=== PATIENT | female | born 1975 | race Hispanic/Latino ===

== ENCOUNTER 2018-03-07 05:18 | Emergency (ER) | payer OTHER ==
[~2018-03-07 05:18] MED LIST: ASPI-1012 PO; HYDR-2132 PO
[2018-03-07] MEDS ORDERED: SODIUM CHLORIDE 0.9% 1000ML 1,000 ML IV ONE (05:48)
[2018-03-07] MEDS ORDERED: ONDANSETRON HCL 4 MG/2 ML VIAL ONE (05:48)
[2018-03-07 05:49] LABS: BASOPHILS % (AUTO) 0.3 % (0.0-5.0); EOSINOPHILS % (AUTO) 0.4 % (0.0-8.0); MEAN CORPUSCULAR HEMOGLOBIN 25.1 pg (27.0-33.0); MEAN CORPUSCULAR HGB CONC 33.7 g/dL (32.0-36.0); MEAN CORPUSCULAR VOLUME 74.5 fL (79-99); MONOCYTES % (AUTO) 4.8 % (3.0-13.0); NEUTROPHILS % (AUTO) 81.5 % (40.0-77.0); PLATELET COUNT (AUTO) 199 K/uL (130-400); RED BLOOD CELL COUNT(AUTO) 5.37 MIL/uL (4.00-5.50); RED CELL DISTRIBUTION WIDTH 15.7 % (11.0-15.5); WHITE BLOOD COUNT (AUTO) 10.5 K/uL (4.8-10.8)
[2018-03-07 05:50] LABS: APPEARANCE,URINE Cloudy (CLEAR); BILIRUBIN,URINE Negative (NEGATIVE); COLOR,URINE Yellow (YELLOW); GLUCOSE, URINE (UA) Negative (NEGATIVE); KETONES,URINE Negative (NEGATIVE); LEUKOCYTE ESTERASE ,URINE Moderate (NEGATIVE); NITRATE,URINE Positive (NEGATIVE); OCCULT BLOOD,URINE Negative (NEGATIVE); PH,URINE 5.5 (5.0-8.0); PROTEIN,URINE Negative (NEGATIVE); UROBILINOGEN,URINE 0.2 mg/dL (0.2-1.0)
[2018-03-07 05:55] LABS: AMORPHOUS SEDIMENT,UR Many /LPF (None Seen); BACTERIA,URINE Few /HPF (None Seen); MUCUS,URINE Few LPF (None Seen); RBC,URINE None Seen /HPF (0-1); SQUAMOUS EPITHELIAL CELL,UR Few /HPF (0-2)
[2018-03-07 06:01] LABS: CREATININE 0.6 mg/dL (0.5-1.5); POTASSIUM 3.8 mmol/L (3.5-5.1)
[2018-03-07 06:02] LABS: AMYLASE 21 U/L (25-115); LIPASE 54 U/L (114-286)
[2018-03-07 06:06] LABS: ALBUMIN 3.4 g/dL (3.5-5.0); BILIRUBIN,TOTAL 0.5 mg/dL (0.2-1.0); TOTAL PROTEIN, SERUM 7.9 g/dL (6.0-8.3)
[2018-03-07] MEDS ORDERED: KETOROLAC TROMETHAMINE 15MG/ML ONE (06:09)
[2018-03-07] MEDS ORDERED: LEVOFLOXACIN 500 MG/D5W 100 ML 100 ML ONE (06:50)
== END 2018-03-07 08:03 | disposition home or self-care (01) ==
LOC: EDH 05:18
DX: N30.00 Acute cystitis without hematuria (principal); R19.7 Diarrhea, unspecified
CPT/HCPCS: 36415; 76770; 80053; 81001; 82150; 83690; 85025; 87088; 87186; 96361; 96365; 96375; 99285; J1885; J1956; J2405; J7030

== ENCOUNTER 2019-03-12 03:55 | Emergency (ER) | payer OTHER ==
[2019-03-12] MEDS ORDERED: TRAMADOL HCL 50 MG TABLET ONE (05:16)
[2019-03-12] MEDS ORDERED: CYCLOBENZAPRINE HCL 10 MG TABLET ONE (05:16)
[2019-03-12 05:17] LABS: EOSINOPHILS % (AUTO) 2.1 % (0.0-8.0); HEMATOCRIT 38.9 % (36-48); LYMPHOCYTES % (AUTO) 20.8 % (21.0-51.0); MEAN CORPUSCULAR HEMOGLOBIN 24.6 pg (27.0-33.0); MEAN CORPUSCULAR HGB CONC 32.5 g/dL (32.0-36.0); MEAN CORPUSCULAR VOLUME 75.8 fL (79-99); MONOCYTES % (AUTO) 6.9 % (3.0-13.0); NEUTROPHILS % (AUTO) 69.2 % (40.0-77.0); PLATELET COUNT (AUTO) 195 K/uL (130-400); RED BLOOD CELL COUNT(AUTO) 5.13 MIL/uL (4.00-5.50); RED CELL DISTRIBUTION WIDTH 16.1 % (11.0-15.5); WHITE BLOOD COUNT (AUTO) 11.5 K/uL (4.8-10.8)
[2019-03-12 05:19] LABS: APPEARANCE,URINE Clear (CLEAR); BILIRUBIN,URINE Negative (NEGATIVE); COLOR,URINE Yellow (YELLOW); GLUCOSE, URINE (UA) Negative (NEGATIVE); KETONES,URINE Negative (NEGATIVE); LEUKOCYTE ESTERASE ,URINE Small (NEGATIVE); NITRATE,URINE Negative (NEGATIVE); OCCULT BLOOD,URINE Negative (NEGATIVE); PROTEIN,URINE Negative (NEGATIVE)
[2019-03-12 05:31] LABS: BACTERIA,URINE Rare /HPF (None Seen); INR 1.01 (0.85-1.15); PARTIAL THROMBOPLASTIN TIME 29.4 SEC (26.3-35.5); PROTHROMBIN TIME 10.6 SEC (9.6-11.6); RBC,URINE None Seen /HPF (0-1); SQUAMOUS EPITHELIAL CELL,UR Few /HPF (0-2); WBC,URINE 0-1 /HPF (0-1)
[2019-03-12] MEDS ORDERED: KETOROLAC TROMETHAMINE 30MG/ML ONE (06:20)
== END 2019-03-12 06:30 | disposition home or self-care (01) ==
LOC: EDH 03:55
DX: M62.838 Other muscle spasm (principal); M54.2 Cervicalgia; R51 Headache; Z90.710 Acquired absence of both cervix and uterus; Z98.890 Other specified postprocedural states
CPT/HCPCS: 36415; 71045; 72040; 81001; 82550; 84484; 85025; 85610; 85730; 93005; 96374; 99285; J1885

== ENCOUNTER 2019-09-05 16:14 | Emergency (ER) | payer OTHER ==
[2019-09-05] MEDS ORDERED: ACETAMINOPHEN EXTRA STRENGTH 500 MG TABLET ONE (17:49)
== END 2019-09-05 18:28 | disposition home or self-care (01) ==
LOC: EDH 16:14
DX: S62.171A Displaced fracture of trapezium [larger multangular], right wrist, initial encounter for closed fracture (principal); R03.0 Elevated blood-pressure reading, without diagnosis of hypertension; Z98.890 Other specified postprocedural states; W18.39XA Other fall on same level, initial encounter; Y93.89 Activity, other specified; Y92.89 Other specified places as the place of occurrence of the external cause; Y99.8 Other external cause status
CPT/HCPCS: 29125; 73110; 73200

== ENCOUNTER 2020-05-11 09:20 | Emergency (ER) | payer OTHER ==
[2020-05-11 10:12] LABS: RAPID GROUP A STREP NEGATIVE (NEGATIVE)
[2020-05-11] MEDS ORDERED: ALBUTEROL INHALER 90MCG/INH IH ONE (10:50)
[2020-05-11] MEDS ORDERED: AZITHROMYCIN 500MG+NS 250ML 250 ML IV ONE (11:13)
[2020-05-11] MEDS ORDERED: CEFTRIAXONE SODIUM 1 GM ONE (11:14)
[2020-05-11] MEDS ORDERED: ACETAMINOPHEN EXTRA STRENGTH 500 MG TABLET ONE (11:14)
[2020-05-11 12:08] LABS: BASOPHILS % (AUTO) 0.2 % (0.0-5.0); EOSINOPHILS % (AUTO) 1.1 % (0.0-8.0); HEMATOCRIT 42.2 % (36-48); LYMPHOCYTES % (AUTO) 23.9 % (21.0-51.0); MEAN CORPUSCULAR HEMOGLOBIN 24.4 pg (27.0-33.0); MEAN CORPUSCULAR HGB CONC 31.5 g/dL (32.0-36.0); MEAN CORPUSCULAR VOLUME 77.3 fL (79-99); MONOCYTES % (AUTO) 7.8 % (3.0-13.0); NEUTROPHILS % (AUTO) 66.7 % (40.0-77.0); PLATELET COUNT (AUTO) 177 K/uL (130-400); RED BLOOD CELL COUNT(AUTO) 5.46 MIL/uL (4.00-5.50); RED CELL DISTRIBUTION WIDTH 15.8 % (11.0-15.5); WHITE BLOOD COUNT (AUTO) 6.2 K/uL (4.8-10.8)
[2020-05-11 12:16] LABS: CREATININE 0.5 mg/dL (0.5-1.5); POTASSIUM 3.8 mmol/L (3.5-5.1)
[2020-05-11 12:21] LABS: ALBUMIN 3.3 g/dL (3.5-5.0); BILIRUBIN,TOTAL 0.2 mg/dL (0.2-1.0); TOTAL PROTEIN, SERUM 7.6 g/dL (6.0-8.3)
[2020-05-11] MEDS ORDERED: DEXAMETHASONE SOD PHOSPHATE 10MG/ML 1ML VIAL ONE (14:27)
== END 2020-05-11 14:38 | disposition home or self-care (01) ==
LOC: EDH 09:20
DX: U07.1 COVID-19 (principal); R50.9 Fever, unspecified; R05 Cough
CPT/HCPCS: 36415; 71045; 80053; 83605; 85025; 87040 ×2; 87804 ×2; 87880; 96365; 99284; 96375; J0456; J0696; J1100; U0003

== ENCOUNTER 2020-05-16 13:31 | Inpatient (IN) | payer OTHER ==
[~2020-05-16] VITALS: Ht 157.5 cm; Wt 139.7 kg
[2020-05-16] MEDS ORDERED: METHYLPREDNISOLONE SOD SUCC 40MG/ML 1ML ONE ×2 (13:51→20:10)
[2020-05-16 14:01] LABS: ABG BASE EXCESS 0.8 mmol/L (-2.0-3.0); ABG HCO3 24.1 mmol/L (21.0-28.0); ABG OXYGEN SATURATION 95.5 % (95.0-99.0); ABG PCO2 35 mmHg (32-45)
[2020-05-16 14:01] LABS: BASOPHILS % (AUTO) 0.1 % (0.0-5.0); HEMATOCRIT 41.6 % (36-48); LYMPHOCYTES % (AUTO) 10.7 % (21.0-51.0); MEAN CORPUSCULAR HEMOGLOBIN 24.3 pg (27.0-33.0); MEAN CORPUSCULAR HGB CONC 32.2 g/dL (32.0-36.0); MEAN CORPUSCULAR VOLUME 75.4 fL (79-99); MONOCYTES % (AUTO) 6.2 % (3.0-13.0); NEUTROPHILS % (AUTO) 81.7 % (40.0-77.0); PLATELET COUNT (AUTO) 176 K/uL (130-400); RED BLOOD CELL COUNT(AUTO) 5.52 MIL/uL (4.00-5.50); RED CELL DISTRIBUTION WIDTH 15.5 % (11.0-15.5); WHITE BLOOD COUNT (AUTO) 12.3 K/uL (4.8-10.8)
[2020-05-16] MEDS ORDERED: CEFTRIAXONE SODIUM 2 GM VIAL ONE (14:05)
[2020-05-16 14:12] LABS: CARBON DIOXIDE 27 mmol/L (21-32); CHLORIDE 98 mmol/L (101-111); CREATININE 0.7 mg/dL (0.5-1.5); GLOMERULAR FILTR. RATE CALC 96 mL/min (>60); GLUCOSE,RANDOM 132 mg/dL (70-105); POTASSIUM 3.2 mmol/L (3.5-5.1); SODIUM SERUM 135 mmol/L (136-145); UREA NITROGEN, BLOOD 12 mg/dL (7-18)
[2020-05-16 14:16] LABS: INR 0.96 (0.85-1.15); PARTIAL THROMBOPLASTIN TIME 27.1 SEC (26.3-35.5); PROTHROMBIN TIME 10.4 SEC (9.6-11.6)
[2020-05-16 14:25] LABS: ALANINE AMINOTRANSFERASE 34 U/L (12-78); ALBUMIN 3.1 g/dL (3.5-5.0); ASPARTATE AMINOTRANSFERASE 22 U/L (10-37); BILIRUBIN,TOTAL 0.3 mg/dL (0.2-1.0); CREATINE KINASE, TOTAL 34 U/L (21-232); MYOGLOBIN 28 ng/mL (10-92); TOTAL PROTEIN, SERUM 7.4 g/dL (6.0-8.3); TROPONIN I < 0.04 ng/mL (0.00-0.06)
[2020-05-16 15:51] LABS: APPEARANCE,URINE Clear (CLEAR); BILIRUBIN,URINE Negative (NEGATIVE); COLOR,URINE Yellow (YELLOW); GLUCOSE, URINE (UA) Negative (NEGATIVE); KETONES,URINE Negative (NEGATIVE); LEUKOCYTE ESTERASE ,URINE Negative (NEGATIVE); NITRATE,URINE Negative (NEGATIVE); OCCULT BLOOD,URINE Negative (NEGATIVE); PROTEIN,URINE Negative (NEGATIVE)
[2020-05-16] MEDS ORDERED: ALBUTEROL INHALER 90MCG/INH IH PRN (19:45)
[2020-05-16] MEDS ORDERED: DIPHENHYDRAMINE HCL 25 MG CAPSULE PO PRN (19:45)
[2020-05-16] MEDS ORDERED: NITROGLYCERIN 0.4 MG SL TAB SL PRN (19:45)
[2020-05-16] MEDS ORDERED: ACETAMINOPHEN 325 MG TAB PO PRN ×2 (19:45)
[2020-05-16] MEDS ORDERED: ONDANSETRON HCL 4 MG/2 ML VIAL IV PRN (19:45)
[2020-05-16] MEDS: AZITHROMYCIN 500MG+NS 250ML 250 ML IV SCH (20:00)
[2020-05-16] MEDS ORDERED: POTASSIUM CHLORIDE 20 MEQ ERTAB PO SCH (20:00)
[2020-05-16] MEDS ORDERED: ERGOCALCIFEROL (VITAMIN D2) 50,000 UNIT CAPSULE PO SCH (20:00)
[2020-05-16] MEDS ORDERED: ERGOCALCIFEROL (VITAMIN D2) 50,000 UNIT CAPSULE ONE (20:11)
[2020-05-16] MEDS ORDERED: POTASSIUM CHLORIDE 20 MEQ ERTAB PO ONE (20:11)
[2020-05-16] MEDS ORDERED: AZITHROMYCIN 500MG+NS 250ML 250 ML IV ONE (20:11)
[2020-05-16 21:49] LABS: CRP QUANTITATIVE 102.3 mg/L (0.00-9.0); MAGNESIUM 1.9 mg/dL (1.80-2.40)
[2020-05-17 06:56] LABS: BASOPHILS % (AUTO) 0.1 % (0.0-5.0); HEMATOCRIT 42.4 % (36-48); LYMPHOCYTES % (AUTO) 8.4 % (21.0-51.0); MEAN CORPUSCULAR HEMOGLOBIN 24.2 pg (27.0-33.0); MEAN CORPUSCULAR HGB CONC 31.8 g/dL (32.0-36.0); MONOCYTES % (AUTO) 5.9 % (3.0-13.0); NEUTROPHILS % (AUTO) 84.5 % (40.0-77.0); PLATELET COUNT (AUTO) 183 K/uL (130-400); RED BLOOD CELL COUNT(AUTO) 5.58 MIL/uL (4.00-5.50); RED CELL DISTRIBUTION WIDTH 15.5 % (11.0-15.5); WHITE BLOOD COUNT (AUTO) 9.5 K/uL (4.8-10.8)
[2020-05-17 07:17] LABS: ALANINE AMINOTRANSFERASE 34 U/L (12-78); ALBUMIN 2.8 g/dL (3.5-5.0); ASPARTATE AMINOTRANSFERASE 23 U/L (10-37); BILIRUBIN,TOTAL 0.3 mg/dL (0.2-1.0); CARBON DIOXIDE 31 mmol/L (21-32); CHLORIDE 100 mmol/L (101-111); CREATININE 0.7 mg/dL (0.5-1.5); GLOMERULAR FILTR. RATE CALC 96 mL/min (>60); GLUCOSE,RANDOM 136 mg/dL (70-105); LACTATE DEHYDROGENASE 364 U/L (81-234); POTASSIUM 4.1 mmol/L (3.5-5.1); SODIUM SERUM 136 mmol/L (136-145); TOTAL PROTEIN, SERUM 7.4 g/dL (6.0-8.3); UREA NITROGEN, BLOOD 9 mg/dL (7-18)
[2020-05-17] MEDS: ALBUTEROL INHALER 90MCG/INH IH SCH ×3 (07:45→15:45)
[2020-05-17 08:00] VITALS: BP 127/53
[2020-05-17] MEDS ORDERED: METHYLPREDNISOLONE SOD SUCC 40MG/ML 1ML ONE ×3 (08:55→20:41)
[2020-05-17] MEDS ORDERED: ALBUTEROL INHALER 90MCG/INH IH ONE (08:55)
[2020-05-17] MEDS ORDERED: ZINC SULFATE 220 CAPSULE ONE (08:55)
[2020-05-17] MEDS ORDERED: ASCORBIC ACID 500 MG TAB ONE (08:55)
[2020-05-17] MEDS ORDERED: CEFTRIAXONE SODIUM 2 GM VIAL ONE (08:56)
[2020-05-17] MEDS ORDERED: ENOXAPARIN SODIUM 40 MG/0.4 ML SYRINGE SQ ONE (08:56)
[2020-05-17] MEDS: ZINC SULFATE 220 CAPSULE PO SCH (09:00)
[2020-05-17] MEDS: ENOXAPARIN SODIUM 40 MG/0.4 ML SYRINGE SQ SCH (09:00)
[2020-05-17] MEDS: METHYLPREDNISOLONE SOD SUCC 40MG/ML 1ML IVP SCH ×3 (09:00→21:39)
[2020-05-17] MEDS: FAMOTIDINE 20MG TAB 20 MG TAB PO SCH ×2 (09:00→21:39)
[2020-05-17] MEDS: CEFTRIAXONE SODIUM 1 GM IVP SCH (09:00)
[2020-05-17] MEDS: ASCORBIC ACID 500 MG TAB PO SCH (09:00)
[2020-05-17 12:00] VITALS: BP 126/40
--- NOTE | 2020-05-17 12:34 | NUR ---
CHART CHECK COMPLETED. Pt IS A 44 Y.O. FEMALE ADMITTED SECONDARY TO CAP,COVID 19. Pt HAS A PAST MEDICAL HISTORY SIGNIFICANT FOR OBSTRUCTIVE SLEEP APNEA, DIVERTICULITIS, MORBID OBESITY, UMBILICAL HERNIA. Pt WITH CURRENT DIET OF REGULAR TEXTURE, THIN LIQUIDS. SKILLED SPEECH THERAPY IS NOT WARRANTED AT THIS TIME. PLEASE REQUEST FORMAL SPEECH/SWALLOW EVALUATION IF Pt PRESENTS WITH +S/S OF ASPIRATION. Addendum: 05/17/20 at 1240 by DOMENIC DIMAS, [facility] Amended: Links added.
--- NOTE | 2020-05-17 15:45 | NUR ---
Consult Spoke to Dr. Santana of [facility] pulmo group. aware of consult.
[2020-05-17 16:00] VITALS: BP 112/47
[2020-05-17] MEDS: AZITHROMYCIN 500MG+NS 250ML 250 ML IV SCH (20:00)
[2020-05-17] MEDS ORDERED: ERGOCALCIFEROL (VITAMIN D2) 50,000 UNIT CAPSULE ONE (20:42)
[2020-05-17] MEDS ORDERED: AZITHROMYCIN 500MG+NS 250ML 250 ML IV ONE (20:42)
[2020-05-17] MEDS ORDERED: POTASSIUM CHLORIDE 20 MEQ ERTAB PO ONE (20:42)
[2020-05-17] MEDS ORDERED: INSULIN HUMULIN R 100 UNIT/ML 3ML ONE (20:46)
[2020-05-17] MEDS ORDERED: FAMOTIDINE 20MG TAB 20 MG TAB ONE (21:12)
[2020-05-18 07:02] LABS: BASOPHILS % (AUTO) 0.1 % (0.0-5.0); LYMPHOCYTES % (AUTO) 7.6 % (21.0-51.0); MEAN CORPUSCULAR HEMOGLOBIN 24.4 pg (27.0-33.0); MEAN CORPUSCULAR HGB CONC 32.3 g/dL (32.0-36.0); MEAN CORPUSCULAR VOLUME 75.7 fL (79-99); NEUTROPHILS % (AUTO) 87.6 % (40.0-77.0); PLATELET COUNT (AUTO) 230 K/uL (130-400); RED BLOOD CELL COUNT(AUTO) 5.81 MIL/uL (4.00-5.50); RED CELL DISTRIBUTION WIDTH 15.5 % (11.0-15.5)
[2020-05-18 07:37] LABS: ALANINE AMINOTRANSFERASE 29 U/L (12-78); ASPARTATE AMINOTRANSFERASE 21 U/L (10-37); BILIRUBIN,TOTAL 0.4 mg/dL (0.2-1.0); CARBON DIOXIDE 27 mmol/L (21-32); CHLORIDE 100 mmol/L (101-111); CREATININE 0.6 mg/dL (0.5-1.5); GLOMERULAR FILTR. RATE CALC 114 mL/min (>60); GLUCOSE,RANDOM 167 mg/dL (70-105); LACTATE DEHYDROGENASE 405 U/L (81-234); POTASSIUM 4.5 mmol/L (3.5-5.1); SODIUM SERUM 134 mmol/L (136-145); TOTAL PROTEIN, SERUM 7.7 g/dL (6.0-8.3); UREA NITROGEN, BLOOD 17 mg/dL (7-18)
[2020-05-18] MEDS ORDERED: ASCORBIC ACID 500 MG TAB ONE (08:37)
[2020-05-18] MEDS ORDERED: METHYLPREDNISOLONE SOD SUCC 40MG/ML 1ML ONE ×3 (08:37→22:27)
[2020-05-18] MEDS ORDERED: ENOXAPARIN SODIUM 40 MG/0.4 ML SYRINGE SQ ONE (08:38)
[2020-05-18] MEDS ORDERED: CEFTRIAXONE SODIUM 2 GM VIAL ONE (08:38)
[2020-05-18] MEDS ORDERED: ZINC SULFATE 220 CAPSULE ONE (08:38)
[2020-05-18] MEDS ORDERED: FAMOTIDINE 20MG TAB 20 MG TAB ONE ×2 (08:38→22:28)
[2020-05-18] MEDS: METHYLPREDNISOLONE SOD SUCC 40MG/ML 1ML IVP SCH ×2 (08:45→14:09)
[2020-05-18] MEDS: CEFTRIAXONE SODIUM 1 GM IVP SCH (08:45)
[2020-05-18] MEDS: FAMOTIDINE 20MG TAB 20 MG TAB PO SCH ×2 (08:45→21:00)
[2020-05-18] MEDS: ZINC SULFATE 220 CAPSULE PO SCH (08:45)
[2020-05-18] MEDS: ASCORBIC ACID 500 MG TAB PO SCH (08:46)
[2020-05-18] MEDS: ENOXAPARIN SODIUM 40 MG/0.4 ML SYRINGE SQ SCH (08:46)
[2020-05-18 11:23] LABS: ABG BASE EXCESS 1.7 mmol/L (-2.0-3.0); ABG HCO3 26.6 mmol/L (21.0-28.0); ABG OXYGEN SATURATION 94.1 % (95.0-99.0); ABG PCO2 43 mmHg (32-45)
--- NOTE | 2020-05-18 17:22 | NUR ---
CALL TO MOM HUMBERTO MICHAEL STATES SHE DOES NOT KNOW HER DAUGHTER PHONE NUMBER, THAT IS WHY ONLY HER NUMBER APPEARS ON THE FACE SHEET. DOES NOT KNOW HER DAUGHTER ADDRESS, THE ADDRESS ON THE FACE SHEET BELONGS TO MOM, STATES PATIENT LIVES ON HER OWN, IS INDEPENDENT , CANNOT VERIFY PCP- STATES WILL PROVIDE TRANSPORT HOME CM TO FOLLOW. PATIENT VERY SICK, PROGNOSIS GUARDED Addendum: 05/18/20 at 1724 by ELICIA SHOEMAKER RN CM Amended: Links added.
[2020-05-18] MEDS: AZITHROMYCIN 500MG+NS 250ML 250 ML IV SCH (20:00)
[2020-05-18] MEDS ORDERED: AZITHROMYCIN 500MG+NS 250ML 250 ML IV ONE (22:28)
[2020-05-19] MEDS ORDERED: ASCORBIC ACID 500 MG TAB ONE (08:17)
[2020-05-19] MEDS ORDERED: ENOXAPARIN SODIUM 60 MG/0.6 ML SQ ONE (08:17)
[2020-05-19] MEDS ORDERED: FAMOTIDINE 20MG TAB 20 MG TAB ONE (08:18)
[2020-05-19] MEDS ORDERED: ZINC SULFATE 220 CAPSULE ONE (08:18)
[2020-05-19] MEDS ORDERED: CEFTRIAXONE SODIUM 1 GM ONE (08:18)
[2020-05-19] MEDS ORDERED: METHYLPREDNISOLONE SOD SUCC 125MG/2ML VIAL ONE (08:18)
[2020-05-19 08:38] LABS: BASOPHILS % (AUTO) 0.2 % (0.0-5.0); LYMPHOCYTES % (AUTO) 15.6 % (21.0-51.0); MEAN CORPUSCULAR HEMOGLOBIN 24.1 pg (27.0-33.0); MEAN CORPUSCULAR HGB CONC 31.7 g/dL (32.0-36.0); MEAN CORPUSCULAR VOLUME 76.1 fL (79-99); MONOCYTES % (AUTO) 6.6 % (3.0-13.0); NEUTROPHILS % (AUTO) 76.4 % (40.0-77.0); PLATELET COUNT (AUTO) 241 K/uL (130-400); RED BLOOD CELL COUNT(AUTO) 5.52 MIL/uL (4.00-5.50); RED CELL DISTRIBUTION WIDTH 15.3 % (11.0-15.5)
[2020-05-19 08:52] LABS: ALANINE AMINOTRANSFERASE 25 U/L (12-78); ALBUMIN 2.7 g/dL (3.5-5.0); ASPARTATE AMINOTRANSFERASE 17 U/L (10-37); BILIRUBIN,TOTAL 0.3 mg/dL (0.2-1.0); CARBON DIOXIDE 31 mmol/L (21-32); CHLORIDE 102 mmol/L (101-111); CREATININE 0.6 mg/dL (0.5-1.5); GLOMERULAR FILTR. RATE CALC 114 mL/min (>60); GLUCOSE,RANDOM 153 mg/dL (70-105); LACTATE DEHYDROGENASE 341 U/L (81-234); POTASSIUM 4.7 mmol/L (3.5-5.1); SODIUM SERUM 138 mmol/L (136-145); UREA NITROGEN, BLOOD 17 mg/dL (7-18)
[2020-05-19] MEDS: ZINC SULFATE 220 CAPSULE PO SCH (09:00)
[2020-05-19] MEDS: CEFTRIAXONE SODIUM 1 GM IVP SCH (09:00)
[2020-05-19] MEDS: ENOXAPARIN SODIUM 40 MG/0.4 ML SYRINGE SQ SCH (09:00)
[2020-05-19] MEDS: FAMOTIDINE 20MG TAB 20 MG TAB PO SCH ×2 (09:00→21:28)
[2020-05-19] MEDS: ASCORBIC ACID 500 MG TAB PO SCH (09:00)
[2020-05-19] MEDS: METHYLPREDNISOLONE SOD SUCC 40MG/ML 1ML IVP SCH ×2 (14:45→21:27)
[2020-05-19] MEDS: ALBUTEROL INHALER 90MCG/INH IH SCH ×4 (15:50→23:45)
[2020-05-19 16:10] VITALS: BP 129/80
[2020-05-19 16:14] VITALS: BP 115/59
[2020-05-19 20:00] VITALS: BP 115/59
[2020-05-19] MEDS: AZITHROMYCIN 500MG+NS 250ML 250 ML IV SCH (21:27)
--- NOTE | 2020-05-19 22:00 | NUR ---
PT STATES CONCERN OVER HER SAFETY DUE TO BEING AROUND COVID PTS. SHE IS COVID POSITIVE AND HAS BEEN EDUCATED ON PT SAFETY DURING THIS TIME. PT SPOKE TO PICKER PACKER. I INFORMED CHARGE NURSE. PT BELIEVES SHE IS AT RISK OF BEING REINFECTED.
[2020-05-20] VITALS: BP 115/51
--- NOTE | 2020-05-20 01:50 | NUR ---
PT WILL BE TRANSFERRING TO [facility].
--- NOTE | 2020-05-20 02:30 | NUR ---
REPORT GIVEN TO BRUNO MCDONALD
--- NOTE | 2020-05-20 02:40 | NUR ---
PT TRANSFERRED TO 224. ON NON REBREATHER 15L 100%. ABLE TO AMBULATE. STATES NO MORE CONCERNS. NOTHING PENDING FOR THE PT.
[2020-05-20 03:46] VITALS: BP 142/76
[2020-05-20] MEDS: ALBUTEROL INHALER 90MCG/INH IH SCH ×5 (04:00→19:46)
[2020-05-20 07:02] LABS: HEMATOCRIT 43.1 % (36-48); MEAN CORPUSCULAR HEMOGLOBIN 24.5 pg (27.0-33.0); MEAN CORPUSCULAR HGB CONC 31.6 g/dL (32.0-36.0); MEAN CORPUSCULAR VOLUME 77.7 fL (79-99); RED BLOOD CELL COUNT(AUTO) 5.55 MIL/uL (4.00-5.50); WHITE BLOOD COUNT (AUTO) 10.5 K/uL (4.8-10.8)
[2020-05-20 07:24] LABS: CREATININE 0.6 mg/dL (0.5-1.5); POTASSIUM 4.3 mmol/L (3.5-5.1)
[2020-05-20 08:00] VITALS: BP 129/65
[2020-05-20] MEDS: ZINC SULFATE 220 CAPSULE PO SCH (08:58)
[2020-05-20] MEDS: METHYLPREDNISOLONE SOD SUCC 40MG/ML 1ML IVP SCH ×3 (08:58→20:47)
[2020-05-20] MEDS: CEFTRIAXONE SODIUM 1 GM IVP SCH (08:58)
[2020-05-20] MEDS: FAMOTIDINE 20MG TAB 20 MG TAB PO SCH ×2 (08:58→20:47)
[2020-05-20] MEDS: ENOXAPARIN SODIUM 40 MG/0.4 ML SYRINGE SQ SCH (08:59)
[2020-05-20] MEDS: ASCORBIC ACID 500 MG TAB PO SCH (09:00)
[2020-05-20 11:00] VITALS: BP 107/61
[2020-05-20 16:00] VITALS: BP 111/65
[2020-05-20 20:46] VITALS: BP 133/64
[2020-05-20] MEDS: AZITHROMYCIN 500MG+NS 250ML 250 ML IV SCH (20:47)
[2020-05-21] MEDS: ALBUTEROL INHALER 90MCG/INH IH SCH ×7 (00:03→23:45)
[2020-05-21 00:38] VITALS: BP 135/65
[2020-05-21 04:24] VITALS: BP 105/74
[2020-05-21 07:03] LABS: BASOPHILS % (AUTO) 0.2 % (0.0-5.0); HEMATOCRIT 43.3 % (36-48); LYMPHOCYTES % (AUTO) 13.4 % (21.0-51.0); MEAN CORPUSCULAR HEMOGLOBIN 24.1 pg (27.0-33.0); MEAN CORPUSCULAR HGB CONC 30.9 g/dL (32.0-36.0); MEAN CORPUSCULAR VOLUME 77.9 fL (79-99); MONOCYTES % (AUTO) 7.9 % (3.0-13.0); NEUTROPHILS % (AUTO) 76.8 % (40.0-77.0); PLATELET COUNT (AUTO) 220 K/uL (130-400); RED BLOOD CELL COUNT(AUTO) 5.56 MIL/uL (4.00-5.50); RED CELL DISTRIBUTION WIDTH 14.9 % (11.0-15.5); WHITE BLOOD COUNT (AUTO) 10.8 K/uL (4.8-10.8)
[2020-05-21 08:00] VITALS: BP 96/48
[2020-05-21] MEDS: CEFTRIAXONE SODIUM 1 GM IVP SCH (09:11)
[2020-05-21] MEDS: METHYLPREDNISOLONE SOD SUCC 40MG/ML 1ML IVP SCH ×3 (09:11→20:40)
[2020-05-21] MEDS: FAMOTIDINE 20MG TAB 20 MG TAB PO SCH ×2 (09:12→20:40)
[2020-05-21] MEDS: ENOXAPARIN SODIUM 40 MG/0.4 ML SYRINGE SQ SCH (09:12)
[2020-05-21] MEDS: ASCORBIC ACID 500 MG TAB PO SCH (09:12)
[2020-05-21] MEDS: ZINC SULFATE 220 CAPSULE PO SCH (09:12)
[2020-05-21 10:29] LABS: CREATININE 0.7 mg/dL (0.5-1.5); CRP QUANTITATIVE 2.8 mg/L (0.00-9.0); POTASSIUM 4.6 mmol/L (3.5-5.1)
[2020-05-21 11:00] VITALS: BP 112/67
[2020-05-21] MEDS ORDERED: PHARMACY COMMUNICATION MISC SCH (12:45)
[2020-05-21] MEDS ORDERED: REMDESIVIR (EUA) 520 100 MG VIAL IV ONE (13:30)
[2020-05-21] MEDS ORDERED: REMDESIVIR (EUA) 520 200 MG in SODIUM CHLORIDE 0.9% 250 ML IV ONE (13:30)
--- NOTE | 2020-05-21 15:25 | NUR ---
Dr. Quevedo gave order for plasma and remdesivir. Remdesivir started today. Type and screen ordered, [facility] form completed and placed in chart. Informed charge nurse Serafin of order.
[2020-05-21 16:00] VITALS: BP 108/62
[2020-05-21] MEDS ORDERED: SODIUM CHLORIDE 0.9% 50 ML IV ONE (18:24)
[2020-05-21 20:12] VITALS: BP 133/57
[2020-05-21] MEDS: AZITHROMYCIN 500MG+NS 250ML 250 ML IV SCH (20:39)
[2020-05-22] VITALS (7 sets, daily range): BP systolic 93–155; BP diastolic 45–78
[2020-05-22] MEDS: ALBUTEROL INHALER 90MCG/INH IH SCH ×3 (04:27→23:28)
[2020-05-22 06:11] LABS: BASOPHILS % (AUTO) 0.2 % (0.0-5.0); HEMATOCRIT 40.5 % (36-48); LYMPHOCYTES % (AUTO) 14.2 % (21.0-51.0); MEAN CORPUSCULAR HEMOGLOBIN 24.4 pg (27.0-33.0); MEAN CORPUSCULAR HGB CONC 31.6 g/dL (32.0-36.0); MEAN CORPUSCULAR VOLUME 77.1 fL (79-99); MONOCYTES % (AUTO) 6.6 % (3.0-13.0); NEUTROPHILS % (AUTO) 77.4 % (40.0-77.0); PLATELET COUNT (AUTO) 230 K/uL (130-400); RED BLOOD CELL COUNT(AUTO) 5.25 MIL/uL (4.00-5.50); RED CELL DISTRIBUTION WIDTH 14.7 % (11.0-15.5); WHITE BLOOD COUNT (AUTO) 10.9 K/uL (4.8-10.8)
[2020-05-22 06:38] LABS: B-TYPE NATRIURETIC PEPTIDE 25 pg/mL (0-100)
[2020-05-22 06:58] LABS: ALBUMIN 2.7 g/dL (3.5-5.0); BILIRUBIN,TOTAL 0.3 mg/dL (0.2-1.0); CREATININE 0.6 mg/dL (0.5-1.5); CRP QUANTITATIVE 4.8 mg/L (0.00-9.0); POTASSIUM 4.3 mmol/L (3.5-5.1); TOTAL PROTEIN, SERUM 6.5 g/dL (6.0-8.3)
[2020-05-22] MEDS: ASCORBIC ACID 500 MG TAB PO SCH (08:47)
[2020-05-22] MEDS: ZINC SULFATE 220 CAPSULE PO SCH (08:47)
[2020-05-22] MEDS: FAMOTIDINE 20MG TAB 20 MG TAB PO SCH ×2 (08:47→20:23)
[2020-05-22] MEDS: CEFTRIAXONE SODIUM 1 GM IVP SCH (08:48)
[2020-05-22] MEDS: METHYLPREDNISOLONE SOD SUCC 40MG/ML 1ML IVP SCH ×3 (08:48→20:22)
[2020-05-22] MEDS: ENOXAPARIN SODIUM 40 MG/0.4 ML SYRINGE SQ SCH (08:48)
[2020-05-22] MEDS ORDERED: REMDESIVIR (EUA) 520 100 MG VIAL IV ONE (13:00)
[2020-05-22] MEDS: REMDESIVIR (EUA) 520 100 MG in SODIUM CHLORIDE 0.9% 250 ML IV SCH (14:21)
[2020-05-22] MEDS: AZITHROMYCIN 500MG+NS 250ML 250 ML IV SCH (20:22)
[2020-05-23] MEDS: ALBUTEROL INHALER 90MCG/INH IH SCH ×6 (02:57→23:30)
[2020-05-23 03:55] VITALS: BP 123/67
[2020-05-23 06:07] LABS: BASOPHILS % (AUTO) 0.2 % (0.0-5.0); HEMATOCRIT 40.5 % (36-48); LYMPHOCYTES % (AUTO) 11.7 % (21.0-51.0); MEAN CORPUSCULAR HEMOGLOBIN 24.4 pg (27.0-33.0); MEAN CORPUSCULAR HGB CONC 31.6 g/dL (32.0-36.0); MEAN CORPUSCULAR VOLUME 77.3 fL (79-99); MONOCYTES % (AUTO) 4.5 % (3.0-13.0); NEUTROPHILS % (AUTO) 82.2 % (40.0-77.0); PLATELET COUNT (AUTO) 229 K/uL (130-400); RED BLOOD CELL COUNT(AUTO) 5.24 MIL/uL (4.00-5.50); RED CELL DISTRIBUTION WIDTH 14.7 % (11.0-15.5); WHITE BLOOD COUNT (AUTO) 13.1 K/uL (4.8-10.8)
[2020-05-23 06:31] LABS: ALBUMIN 2.8 g/dL (3.5-5.0); BILIRUBIN,TOTAL 0.4 mg/dL (0.2-1.0); CREATININE 0.6 mg/dL (0.5-1.5); CRP QUANTITATIVE 4.1 mg/L (0.00-9.0); POTASSIUM 4.8 mmol/L (3.5-5.1); TOTAL PROTEIN, SERUM 6.6 g/dL (6.0-8.3)
[2020-05-23 08:00] VITALS: BP 108/63
[2020-05-23] MEDS: METHYLPREDNISOLONE SOD SUCC 40MG/ML 1ML IVP SCH (08:39)
[2020-05-23] MEDS: CEFTRIAXONE SODIUM 1 GM IVP SCH (08:39)
[2020-05-23] MEDS: ZINC SULFATE 220 CAPSULE PO SCH (08:40)
[2020-05-23] MEDS: FAMOTIDINE 20MG TAB 20 MG TAB PO SCH ×2 (08:40→19:51)
[2020-05-23] MEDS: ASCORBIC ACID 500 MG TAB PO SCH (08:40)
[2020-05-23] MEDS: ENOXAPARIN SODIUM 40 MG/0.4 ML SYRINGE SQ SCH (08:41)
[2020-05-23] MEDS: DEXAMETHASONE 4 MG TAB PO SCH (09:00)
[2020-05-23] MEDS: APIXABAN 2.5 MG TABLET PO SCH ×2 (09:00→19:52)
--- NOTE | 2020-05-23 09:50 | NUR ---
Administered solumedrol this AM prior to change to decadron
--- NOTE | 2020-05-23 09:59 | NUR ---
Administered lovenox this morning prior to change to eliquis.
[2020-05-23 11:00] VITALS: BP 108/49
[2020-05-23] MEDS ORDERED: REMDESIVIR (EUA) 520 100 MG VIAL IV ONE (13:00)
[2020-05-23] MEDS: REMDESIVIR (EUA) 520 100 MG in SODIUM CHLORIDE 0.9% 250 ML IV SCH (13:40)
[2020-05-23 15:00] VITALS: BP 97/50
[2020-05-23] MEDS ORDERED: SODIUM CHLORIDE 0.9% 50 ML IV ONE (16:45)
[2020-05-23 20:38] VITALS: BP 102/53
[2020-05-24] VITALS: BP 112/60
[2020-05-24] MEDS: ALBUTEROL INHALER 90MCG/INH IH SCH ×6 (03:02→23:55)
[2020-05-24 04:05] VITALS: BP 119/51
--- NOTE | 2020-05-24 05:37 | NUR ---
PM SHIFT SUMMARY PT A&0X3 ABLE TO MAKE NEEDS KNOWN, ON NRB @15 L, CONVERTED TO NC 02 SAT 92-94% HOWEVER DROPS TO 80 WITH AMBULATION TO RESTROOM PLACED ON VENTI MASK BY RT 02 SAT 92-94% WITH USE AND DOWN TO 87% WITH AMBULATION TO RESTROOM. PT SLEPT PRONE THROUGHOUT THE NIGHT. NO OTHER CHANGES FROM BASELINE SHIFT ASSESSMENT/ACUTE EVENT OVERNIGHT.
[2020-05-24 08:28] VITALS: BP 128/56
[2020-05-24] MEDS: CEFTRIAXONE SODIUM 1 GM IVP SCH (08:45)
[2020-05-24] MEDS: FAMOTIDINE 20MG TAB 20 MG TAB PO SCH ×2 (08:45→20:42)
[2020-05-24] MEDS: APIXABAN 2.5 MG TABLET PO SCH ×2 (08:45→20:42)
[2020-05-24] MEDS: ZINC SULFATE 220 CAPSULE PO SCH (08:45)
[2020-05-24] MEDS: ASCORBIC ACID 500 MG TAB PO SCH (08:45)
[2020-05-24] MEDS: DEXAMETHASONE 4 MG TAB PO SCH (08:45)
[2020-05-24] MEDS ORDERED: COMPOUND IV REFRIGERATED 1 EACH IVSOLN MISC PRN (12:00)
[2020-05-24 12:30] VITALS: BP 92/46
--- NOTE | 2020-05-24 12:48 | NUR ---
RDSCREEN - LOS X 8 Pt admitted with CAP, positive COVID-19. Pt with Clear Liquid diet order in place, 'may have Chk'n salad' in diet comment. PO intake at 100% (05/22/20). Attempt to call Pt and RN, no answer. No report of GI distress. Zinc, Vitamin C supplementation in place. NRB vs Nasal canula per EMR. Prone positioning. WBC 13.1, Alb 2.8. Recommend Advance diet to Full Liquid as medically feasible Recommend 30mL ProMod QD RD to continue to monitor. Please notify as additional nutrition concerns arise. Thank you.
[2020-05-24] MEDS ORDERED: REMDESIVIR (EUA) 520 100 MG VIAL IV ONE (13:00)
[2020-05-24] MEDS: REMDESIVIR (EUA) 520 100 MG in SODIUM CHLORIDE 0.9% 250 ML IV SCH (13:26)
[2020-05-24 16:34] VITALS: BP 94/55
[2020-05-24] MEDS ORDERED: SODIUM CHLORIDE 0.9% 50 ML IV ONE (16:36)
[2020-05-24 20:27] VITALS: BP 122/75
[2020-05-25] VITALS (7 sets, daily range): BP systolic 99–126; BP diastolic 44–71
[2020-05-25] MEDS: ALBUTEROL INHALER 90MCG/INH IH SCH ×6 (04:23→23:45)
--- NOTE | 2020-05-25 05:42 | NUR ---
PM SHIFT SUMMARY PT A&OX3 ABLE TO MAKE NEEDS KNOWN. ON VENTI MASK 02 SAT 94%, USE CPAP DURING SLEEP. NO CHANGES FROM BASELINE SHIFT ASSESSMENT/ACUTE EVENTS OVERNIGHT.
[2020-05-25] MEDS: ZINC SULFATE 220 CAPSULE PO SCH (09:00)
[2020-05-25] MEDS: APIXABAN 2.5 MG TABLET PO SCH ×2 (09:00→20:33)
[2020-05-25] MEDS: ASCORBIC ACID 500 MG TAB PO SCH (09:00)
[2020-05-25] MEDS: FAMOTIDINE 20MG TAB 20 MG TAB PO SCH ×2 (09:00→20:33)
[2020-05-25] MEDS: DEXAMETHASONE 4 MG TAB PO SCH (09:00)
[2020-05-25] MEDS ORDERED: REMDESIVIR (EUA) 520 100 MG VIAL IV ONE (13:00)
[2020-05-25] MEDS: REMDESIVIR (EUA) 520 100 MG in SODIUM CHLORIDE 0.9% 250 ML IV SCH (13:35)
[2020-05-25] MEDS ORDERED: SODIUM CHLORIDE 0.9% 50 ML IV ONE (15:40)
--- NOTE | 2020-05-25 16:08 | NUR ---
Changed pt from ventimask 30% to NC 6lpm oxygen sat 94% before change to NC. Will continue to monitor.
--- NOTE | 2020-05-25 16:32 | NUR ---
Pt sating 98% on 6lpm NC. Decreased to 5lpm. Will continue to monitor.
--- NOTE | 2020-05-25 17:49 | NUR ---
Reassess oxygen saturation after pt showered. Pt report slight SOB when showering. 95% on 5lpm NC decreased to 4lpm. No s/s of distress noted at this time. Will continue to monitor.
[2020-05-26 03:58] VITALS: BP 111/54
[2020-05-26] MEDS: ALBUTEROL INHALER 90MCG/INH IH SCH ×4 (04:34→19:55)
[2020-05-26 08:17] VITALS: BP 120/68
[2020-05-26] MEDS: ZINC SULFATE 220 CAPSULE PO SCH (09:01)
[2020-05-26] MEDS: FAMOTIDINE 20MG TAB 20 MG TAB PO SCH ×2 (09:01→21:06)
[2020-05-26] MEDS: ASCORBIC ACID 500 MG TAB PO SCH (09:01)
[2020-05-26] MEDS: DEXAMETHASONE 4 MG TAB PO SCH (09:01)
[2020-05-26] MEDS: APIXABAN 2.5 MG TABLET PO SCH ×2 (09:57→21:06)
[2020-05-26 11:53] VITALS: BP 100/67
[2020-05-26 16:34] VITALS: BP 113/74
--- NOTE | 2020-05-26 18:23 | NUR ---
Tubing Nurse approached CM and verbalized patient's concern regarding tubing for CPAP machine and possible need for oxygen. Verified concern with patient. Patient states new tubing won't come in until 05/30. CM approached GM, RT and informed of patient's concern. Per GM, RT should be able to provide needed tubing.
[2020-05-26 19:46] VITALS: BP 98/48
[2020-05-26 23:20] VITALS: BP 114/56
[2020-05-27] MEDS: ALBUTEROL INHALER 90MCG/INH IH SCH ×4 (00:29→11:59)
[2020-05-27 03:55] VITALS: BP 124/62
[2020-05-27 06:46] LABS: BASOPHILS % (AUTO) 0.1 % (0.0-5.0); EOSINOPHILS % (AUTO) 0.2 % (0.0-8.0); HEMATOCRIT 37.4 % (36-48); LYMPHOCYTES % (AUTO) 17.8 % (21.0-51.0); MEAN CORPUSCULAR HEMOGLOBIN 24.4 pg (27.0-33.0); MEAN CORPUSCULAR HGB CONC 31.6 g/dL (32.0-36.0); MEAN CORPUSCULAR VOLUME 77.4 fL (79-99); MONOCYTES % (AUTO) 10.8 % (3.0-13.0); NEUTROPHILS % (AUTO) 69.8 % (40.0-77.0); PLATELET COUNT (AUTO) 206 K/uL (130-400); RED BLOOD CELL COUNT(AUTO) 4.83 MIL/uL (4.00-5.50); RED CELL DISTRIBUTION WIDTH 15.5 % (11.0-15.5); WHITE BLOOD COUNT (AUTO) 15.4 K/uL (4.8-10.8)
[2020-05-27 07:13] LABS: PLATELET MORPHOLOGY LARGE PLTS PRESENT
[2020-05-27 07:14] LABS: ALBUMIN 2.8 g/dL (3.5-5.0); BILIRUBIN,TOTAL 0.3 mg/dL (0.2-1.0); CREATININE 0.6 mg/dL (0.5-1.5); CRP QUANTITATIVE 11.9 mg/L (0.00-9.0); POTASSIUM 4.2 mmol/L (3.5-5.1); TOTAL PROTEIN, SERUM 6.1 g/dL (6.0-8.3)
[2020-05-27 08:00] VITALS: BP 98/45
[2020-05-27] MEDS: ZINC SULFATE 220 CAPSULE PO SCH (08:34)
[2020-05-27] MEDS: FAMOTIDINE 20MG TAB 20 MG TAB PO SCH (08:34)
[2020-05-27] MEDS: ASCORBIC ACID 500 MG TAB PO SCH (08:34)
[2020-05-27] MEDS: APIXABAN 2.5 MG TABLET PO SCH (08:34)
[2020-05-27] MEDS: DEXAMETHASONE 4 MG TAB PO SCH (08:34)
[2020-05-27] MEDS ORDERED: DEXA4 PO (10:09)
[2020-05-27] MEDS ORDERED: APIX2.5T PO (10:09)
--- NOTE | 2020-05-27 10:35 | NUR ---
Pt to be discharged home with oxygen concentrator. Called oncall supportive employment case manager to determine how this is set up for home. Will discharge pt when home oxygen arrangement is done.
[2020-05-27] MEDS ORDERED: NYST5ORA7 PO (10:59)
--- NOTE | 2020-05-27 12:04 | NUR ---
Received a call from case management. Pt to go home with loaned oxygen concentrator. art manager to determine discharge process with concentrator. Will prepare all discharge and send home once oxygen concentrator for home is set up.
[2020-05-27 12:52] VITALS: BP 125/88
--- NOTE | 2020-05-27 13:50 | NUR ---
CM NOTE/HOME O2 CM spoke to ROBERT BROWN regarding oxygen. State pt has been weaned off oxygen and may not need home o2. Received orders for respiratory eval for home oxygen. CM notified RT of pending eval and discharge. CM spoke to pt and explained hopital is lending o2 concentrator and tank for expedited discharge. CM explained emergency plan at home if power outage and aware to call EMS or return to hospital for any respiratory distress symptoms. Pt verbalized understanding is agreed to plan and feel safe to return home. The above plan was also discussed with ROBERT BROWN and agreed. CM updated nursing with above. CM to f/u.
--- NOTE | 2020-05-27 15:31 | NUR ---
Provided discharge instructions on medications and instructed when to start taking medication. Pt verbalized understanding. All prescriptions to be picked up at outside pharmacy. IV and tele removed. Educated pt to continue to socially distant self, good hand hygiene, wear mask when out in public. Continue to quarantine x14 days. Encourage oxygen saturation monitoring at home and pt verbalized understanding. Has pulse oximeter at home. Pt will need to go home with oxygen concentrator. Pt signed paperwork for concentrator loaner from hospital. Respiratory to complete teaching when concentrator arrives to unit. Will discharge pt when teaching completed.
--- NOTE | 2020-05-27 16:02 | NUR ---
Pt transported downstairs via wheelchair. health club manager to meet at ER with concentrator. No s/s of distress noted upon exit from unit.
== END 2020-05-27 16:00 | disposition home or self-care (01) | DRG 177 ==
LOC: EDH 13:31 → EDHIP 19:00 → 2CV 05-19 14:09 → 2DH 05-20 01:45
PROVIDERS: ADMIT Internal Medicine; ATTEND Internal Medicine
PROC: 30233K1 Transfusion of Nonautologous Frozen Plasma into Peripheral Vein, Percutaneous Approach (ICD-10-PCS; principal; 2020-05-16)
PROC: 5A09357 Assistance with Respiratory Ventilation, Less than 24 Consecutive Hours, Continuous Positive Airway Pressure (ICD-10-PCS; 2020-05-17)
PROC: 5A09357 Assistance with Respiratory Ventilation, Less than 24 Consecutive Hours, Continuous Positive Airway Pressure (ICD-10-PCS; 2020-05-23)
PROC: 5A09357 Assistance with Respiratory Ventilation, Less than 24 Consecutive Hours, Continuous Positive Airway Pressure (ICD-10-PCS; 2020-05-24)
PROC: 5A09357 Assistance with Respiratory Ventilation, Less than 24 Consecutive Hours, Continuous Positive Airway Pressure (ICD-10-PCS; 2020-05-25)
PROC: 5A09357 Assistance with Respiratory Ventilation, Less than 24 Consecutive Hours, Continuous Positive Airway Pressure (ICD-10-PCS; 2020-05-26)
PROC: 5A09357 Assistance with Respiratory Ventilation, Less than 24 Consecutive Hours, Continuous Positive Airway Pressure (ICD-10-PCS; 2020-05-27)
DX: U07.1 COVID-19 (principal); J12.89 Other viral pneumonia; J96.01 Acute respiratory failure with hypoxia; Z68.43 Body mass index [BMI] 50.0-59.9, adult; G47.33 Obstructive sleep apnea (adult) (pediatric); E87.6 Hypokalemia; R73.9 Hyperglycemia, unspecified; E66.01 Morbid (severe) obesity due to excess calories; Z91.040 Latex allergy status; Z82.0 Family history of epilepsy and other diseases of the nervous system; Z82.5 Family history of asthma and other chronic lower respiratory diseases; Z83.3 Family history of diabetes mellitus; Z82.3 Family history of stroke; Z80.0 Family history of malignant neoplasm of digestive organs; Z82.49 Family history of ischemic heart disease and other diseases of the circulatory system
CPT/HCPCS: 0099U; 36415; 36600; 71045; 80048; 80053; 81003; 82550; 82728; 82803; 83605; 83615; 83735; 83874; 83880; 84145; 84484; 85025; 85027; 85378; 85610; 85730; 86140; 86850; 86900; 86901; 86927; 87040; 87088; 87449; 93005; 94660; 94760; 99291; G0378; J0456; J0696; J1650; J1815; J2920; J2930; J7050; J8540; U0003

== ENCOUNTER → 2020-06-16 | Outpatient (CLI) | payer OTHER ==
[~2020-06-16] MED LIST changes: +APIX2.5T PO; +DEXA4 PO; +NYST5ORA7 PO
[2020-06-16 09:45] LABS: BASOPHILS % (AUTO) 0.3 % (0.0-5.0); EOSINOPHILS % (AUTO) 1.2 % (0.0-8.0); HEMATOCRIT 38.8 % (36-48); LYMPHOCYTES % (AUTO) 21.6 % (21.0-51.0); MEAN CORPUSCULAR HEMOGLOBIN 24.9 pg (27.0-33.0); MEAN CORPUSCULAR HGB CONC 31.2 g/dL (32.0-36.0); MEAN CORPUSCULAR VOLUME 79.8 fL (79-99); MONOCYTES % (AUTO) 6.7 % (3.0-13.0); NEUTROPHILS % (AUTO) 68.1 % (40.0-77.0); PLATELET COUNT (AUTO) 186 K/uL (130-400); RED BLOOD CELL COUNT(AUTO) 4.86 MIL/uL (4.00-5.50); RED CELL DISTRIBUTION WIDTH 17.2 % (11.0-15.5)
[2020-06-16 09:56] LABS: HEMOGLOBIN A1C 6.9 % (4.0-6.0)
[2020-06-16 10:11] LABS: BILIRUBIN,TOTAL 0.4 mg/dL (0.2-1.0); CREATININE 0.6 mg/dL (0.5-1.5); CRP QUANTITATIVE 21.6 mg/L (0.00-9.0); POTASSIUM 3.9 mmol/L (3.5-5.1); THYROID STIMULATING HORMONE 1.17 uIU/mL (0.36-3.74)
[2020-06-16 10:17] LABS: B-TYPE NATRIURETIC PEPTIDE 5 pg/mL (0-100)
[2020-06-16 10:49] LABS: ERYTHROCYTE SEDIMENTATION RATE 29 MM/HR (0-20)
== END | disposition home or self-care (01) ==
LOC: LAB 09:15
PROVIDERS: ATTEND Internal Medicine
DX: G47.33 Obstructive sleep apnea (adult) (pediatric) (principal); J45.909 Unspecified asthma, uncomplicated; E66.01 Morbid (severe) obesity due to excess calories; I51.7 Cardiomegaly
CPT/HCPCS: 36415; 71046; 80053; 80061; 82306; 83036; 83880; 84443; 84484; 85025; 85651; 86140

== ENCOUNTER → 2020-07-04 | Outpatient (CLI) | payer OTHER ==
[2020-07-04 09:35] LABS: BASOPHILS % (AUTO) 0.5 % (0.0-5.0); EOSINOPHILS % (AUTO) 0.7 % (0.0-8.0); HEMATOCRIT 39.6 % (36-48); MEAN CORPUSCULAR HEMOGLOBIN 25.4 pg (27.0-33.0); MEAN CORPUSCULAR HGB CONC 31.8 g/dL (32.0-36.0); MEAN CORPUSCULAR VOLUME 79.8 fL (79-99); MONOCYTES % (AUTO) 6.7 % (3.0-13.0); NEUTROPHILS % (AUTO) 69.4 % (40.0-77.0); PLATELET COUNT (AUTO) 199 K/uL (130-400); RED BLOOD CELL COUNT(AUTO) 4.96 MIL/uL (4.00-5.50); RED CELL DISTRIBUTION WIDTH 16.5 % (11.0-15.5); WHITE BLOOD COUNT (AUTO) 8.2 K/uL (4.8-10.8)
[2020-07-04 10:00] LABS: B-TYPE NATRIURETIC PEPTIDE < 5 pg/mL (0-100)
[2020-07-04 10:34] LABS: ALBUMIN 3.2 g/dL (3.5-5.0); BILIRUBIN,TOTAL 0.3 mg/dL (0.2-1.0); CREATININE 0.5 mg/dL (0.5-1.5); THYROID STIMULATING HORMONE 1.65 uIU/mL (0.36-3.74); TOTAL PROTEIN, SERUM 7.1 g/dL (6.0-8.3)
[2020-07-04 10:48] LABS: ERYTHROCYTE SEDIMENTATION RATE 26 MM/HR (0-20)
== END | disposition home or self-care (01) ==
LOC: LAB 07:53
PROVIDERS: ATTEND Internal Medicine
DX: R06.02 Shortness of breath (principal); R06.00 Dyspnea, unspecified; R09.02 Hypoxemia; R63.5 Abnormal weight gain
CPT/HCPCS: 36415; 71046; 80053; 80061; 82607; 83615; 83880; 84443; 85025; 85378; 85651

== ENCOUNTER → 2020-07-24 | Outpatient (CLI) | payer OTHER ==
[2020-07-24 12:27] LABS: BASOPHILS % (AUTO) 0.3 % (0.0-5.0); EOSINOPHILS % (AUTO) 1.4 % (0.0-8.0); LYMPHOCYTES % (AUTO) 19.6 % (21.0-51.0); MEAN CORPUSCULAR HEMOGLOBIN 25.3 pg (27.0-33.0); MEAN CORPUSCULAR HGB CONC 31.5 g/dL (32.0-36.0); MEAN CORPUSCULAR VOLUME 80.3 fL (79-99); MONOCYTES % (AUTO) 5.6 % (3.0-13.0); NEUTROPHILS % (AUTO) 72.6 % (40.0-77.0); PLATELET COUNT (AUTO) 222 K/uL (130-400); RED BLOOD CELL COUNT(AUTO) 4.98 MIL/uL (4.00-5.50); RED CELL DISTRIBUTION WIDTH 15.5 % (11.0-15.5)
[2020-07-24 12:49] LABS: ALBUMIN 3.4 g/dL (3.5-5.0); BILIRUBIN,TOTAL 0.3 mg/dL (0.2-1.0); CREATININE 0.6 mg/dL (0.5-1.5); CRP QUANTITATIVE 19.7 mg/L (0.00-9.0); POTASSIUM 3.9 mmol/L (3.5-5.1); THYROID STIMULATING HORMONE 1.42 uIU/mL (0.36-3.74); TOTAL PROTEIN, SERUM 7.4 g/dL (6.0-8.3)
[2020-07-24 13:52] LABS: ERYTHROCYTE SEDIMENTATION RATE 35 MM/HR (0-20)
[2020-07-24 14:17] LABS: B-TYPE NATRIURETIC PEPTIDE 6 pg/mL (0-100)
== END | disposition home or self-care (01) ==
LOC: RAH 10:46
PROVIDERS: ATTEND Internal Medicine
DX: J44.9 Chronic obstructive pulmonary disease, unspecified (principal); J84.10 Pulmonary fibrosis, unspecified; R06.02 Shortness of breath; R63.5 Abnormal weight gain; M47.814 Spondylosis without myelopathy or radiculopathy, thoracic region; I51.7 Cardiomegaly
CPT/HCPCS: 36415; 71046; 80053; 83880; 84443; 85025; 85378; 85651; 86038; 86140; 86215; 86235

== ENCOUNTER → 2020-08-04 | Outpatient (CLI) | payer OTHER | END | disposition home or self-care (01) | LOC: LAB 08:28 | PROVIDERS: ATTEND Internal Medicine Critical Care Medicine | DX: U07.1 COVID-19 (principal) | CPT/HCPCS: 36415; 82728; 85378; 85651; 86140 ==

== ENCOUNTER → 2020-08-25 | Outpatient (CLI) | payer OTHER | END | disposition home or self-care (01) | LOC: RAH 09:25 | PROVIDERS: ATTEND Internal Medicine Critical Care Medicine | DX: R06.00 Dyspnea, unspecified (principal); E66.9 Obesity, unspecified | CPT/HCPCS: 93306; 93356 ==

== ENCOUNTER → 2020-09-05 | Outpatient (CLI) | payer OTHER ==
[2020-09-05 10:26] LABS: BASOPHILS % (AUTO) 0.4 % (0.0-5.0); HEMATOCRIT 38.9 % (36-48); LYMPHOCYTES % (AUTO) 20.1 % (21.0-51.0); MEAN CORPUSCULAR HEMOGLOBIN 25.2 pg (27.0-33.0); MEAN CORPUSCULAR HGB CONC 31.4 g/dL (32.0-36.0); MEAN CORPUSCULAR VOLUME 80.2 fL (79-99); NEUTROPHILS % (AUTO) 72.7 % (40.0-77.0); PLATELET COUNT (AUTO) 192 K/uL (130-400); RED BLOOD CELL COUNT(AUTO) 4.85 MIL/uL (4.00-5.50); RED CELL DISTRIBUTION WIDTH 14.4 % (11.0-15.5); WHITE BLOOD COUNT (AUTO) 11.9 K/uL (4.8-10.8)
[2020-09-05 10:45] LABS: ALBUMIN 3.3 g/dL (3.5-5.0); BILIRUBIN,TOTAL 0.3 mg/dL (0.2-1.0); CREATININE 0.6 mg/dL (0.5-1.5); CRP QUANTITATIVE 26.7 mg/L (0.00-9.0); POTASSIUM 4.3 mmol/L (3.5-5.1); THYROID STIMULATING HORMONE 1.58 uIU/mL (0.36-3.74); TOTAL PROTEIN, SERUM 7.3 g/dL (6.0-8.3)
[2020-09-05 11:09] LABS: B-TYPE NATRIURETIC PEPTIDE 8 pg/mL (0-100)
[2020-09-05 11:47] LABS: ERYTHROCYTE SEDIMENTATION RATE 25 MM/HR (0-20)
== END | disposition home or self-care (01) ==
LOC: LAB 09:23
PROVIDERS: ATTEND Internal Medicine
DX: J84.10 Pulmonary fibrosis, unspecified (principal); R06.02 Shortness of breath; U07.1 COVID-19
CPT/HCPCS: 36415; 80053; 82728; 83615; 83880; 84443; 85025; 85378; 85651; 86140

== ENCOUNTER → 2020-09-19 | Outpatient (CLI) | payer OTHER | END | disposition home or self-care (01) | LOC: RAH 11:09 | PROVIDERS: ATTEND Internal Medicine | DX: M17.12 Unilateral primary osteoarthritis, left knee (principal) | CPT/HCPCS: 73560 ==

== ENCOUNTER → 2020-09-27 | Outpatient (CLI) | payer OTHER | END | disposition home or self-care (01) | LOC: RAH 13:22 | PROVIDERS: ATTEND Internal Medicine | DX: R91.8 Other nonspecific abnormal finding of lung field (principal); I51.7 Cardiomegaly; Z86.19 Personal history of other infectious and parasitic diseases | CPT/HCPCS: 71046 ==

== ENCOUNTER → 2020-10-11 | Outpatient (CLI) | payer OTHER ==
[2020-10-11 13:58] LABS: BASOPHILS % (AUTO) 0.3 % (0.0-5.0); EOSINOPHILS % (AUTO) 0.5 % (0.0-8.0); HEMATOCRIT 39.2 % (36-48); LYMPHOCYTES % (AUTO) 31.7 % (21.0-51.0); MEAN CORPUSCULAR HEMOGLOBIN 24.7 pg (27.0-33.0); MEAN CORPUSCULAR HGB CONC 31.4 g/dL (32.0-36.0); MEAN CORPUSCULAR VOLUME 78.9 fL (79-99); NEUTROPHILS % (AUTO) 61.8 % (40.0-77.0); PLATELET COUNT (AUTO) 164 K/uL (130-400); RED BLOOD CELL COUNT(AUTO) 4.97 MIL/uL (4.00-5.50); RED CELL DISTRIBUTION WIDTH 14.9 % (11.0-15.5); WHITE BLOOD COUNT (AUTO) 11.6 K/uL (4.8-10.8)
[2020-10-11 14:14] LABS: ALBUMIN 3.1 g/dL (3.5-5.0); BILIRUBIN,TOTAL 0.3 mg/dL (0.2-1.0); CREATININE 0.6 mg/dL (0.5-1.5); CRP QUANTITATIVE 13.9 mg/L (0.00-9.0); POTASSIUM 3.7 mmol/L (3.5-5.1); TOTAL PROTEIN, SERUM 6.8 g/dL (6.0-8.3)
[2020-10-11 15:01] LABS: ERYTHROCYTE SEDIMENTATION RATE 24 MM/HR (0-20)
== END | disposition home or self-care (01) ==
LOC: RESP 12:37
PROVIDERS: ATTEND Internal Medicine
DX: R06.02 Shortness of breath (principal); U07.1 COVID-19; J12.89 Other viral pneumonia; N39.3 Stress incontinence (female) (male); M23.90 Unspecified internal derangement of unspecified knee
CPT/HCPCS: 36415; 80053; 85025; 85651; 86038; 86140; 86215; 86235; 86431; 94060; 94727; 94729

== ENCOUNTER → 2020-11-14 | Outpatient (CLI) | payer OTHER | END | disposition home or self-care (01) | LOC: RAH 15:49 | PROVIDERS: ATTEND Internal Medicine | DX: R91.8 Other nonspecific abnormal finding of lung field (principal); M47.815 Spondylosis without myelopathy or radiculopathy, thoracolumbar region | CPT/HCPCS: 71046 ==

== ENCOUNTER → 2020-12-20 | Outpatient (CLI) | payer OTHER ==
[2020-12-20 11:40] LABS: BASOPHILS % (AUTO) 0.4 % (0.0-5.0); EOSINOPHILS % (AUTO) 1.2 % (0.0-8.0); HEMATOCRIT 39.7 % (36-48); LYMPHOCYTES % (AUTO) 14.4 % (21.0-51.0); MEAN CORPUSCULAR HEMOGLOBIN 24.8 pg (27.0-33.0); MEAN CORPUSCULAR HGB CONC 31.2 g/dL (32.0-36.0); MEAN CORPUSCULAR VOLUME 79.4 fL (79-99); MONOCYTES % (AUTO) 6.4 % (3.0-13.0); PLATELET COUNT (AUTO) 162 K/uL (130-400); RED CELL DISTRIBUTION WIDTH 15.4 % (11.0-15.5); WHITE BLOOD COUNT (AUTO) 11.7 K/uL (4.8-10.8)
[2020-12-20 12:00] LABS: APPEARANCE,URINE Clear (CLEAR); BILIRUBIN,URINE Negative (NEGATIVE); COLOR,URINE Yellow (YELLOW); GLUCOSE, URINE (UA) Negative (NEGATIVE); KETONES,URINE Negative (NEGATIVE); LEUKOCYTE ESTERASE ,URINE Moderate (NEGATIVE); NITRATE,URINE Negative (NEGATIVE); OCCULT BLOOD,URINE Negative (NEGATIVE); PH,URINE 5.5 (5.0-8.0); PROTEIN,URINE Negative (NEGATIVE); UROBILINOGEN,URINE 0.2 mg/dL (0.2-1.0)
[2020-12-20 12:06] LABS: B-TYPE NATRIURETIC PEPTIDE < 5 pg/mL (0-100)
[2020-12-20 12:10] LABS: ALBUMIN 3.2 g/dL (3.5-5.0); BILIRUBIN,DIRECT 0.1 mg/dL (0.0-0.3); BILIRUBIN,TOTAL 0.4 mg/dL (0.2-1.0); CREATININE 0.5 mg/dL (0.5-1.5); POTASSIUM 3.7 mmol/L (3.5-5.1); THYROID STIMULATING HORMONE 0.95 uIU/mL (0.36-3.74); TOTAL PROTEIN, SERUM 7.5 g/dL (6.0-8.3)
[2020-12-20 12:19] LABS: BACTERIA,URINE Few /HPF (None Seen); RBC,URINE 0-1 /HPF (0-1); WBC,URINE 0-1 /HPF (0-1)
== END | disposition home or self-care (01) ==
LOC: LAB 10:03
PROVIDERS: ATTEND Internal Medicine
DX: J44.9 Chronic obstructive pulmonary disease, unspecified (principal); J96.10 Chronic respiratory failure, unspecified whether with hypoxia or hypercapnia; M23.90 Unspecified internal derangement of unspecified knee
CPT/HCPCS: 36415; 80053; 80061; 80076; 81001; 82043; 83880; 84443; 85025; 87088

== ENCOUNTER 2020-12-31 03:03 | Observation (INO) | payer OTHER ==
[~2020-12-31] VITALS: Ht 157.5 cm; Wt 155.9 kg
[2020-12-31] MEDS ORDERED: NITROGLYCERIN 1GM/1 INCH PACKET TD ONE (03:19)
[2020-12-31] MEDS ORDERED: ASPIRIN 325 MG TABLET ONE (03:19)
[2020-12-31 03:29] LABS: BASOPHILS % (AUTO) 0.5 % (0.0-5.0); EOSINOPHILS % (AUTO) 2.1 % (0.0-8.0); HEMATOCRIT 39.6 % (36-48); LYMPHOCYTES % (AUTO) 20.5 % (21.0-51.0); MEAN CORPUSCULAR HEMOGLOBIN 24.8 pg (27.0-33.0); MEAN CORPUSCULAR HGB CONC 31.3 g/dL (32.0-36.0); MEAN CORPUSCULAR VOLUME 79.2 fL (79-99); MONOCYTES % (AUTO) 6.3 % (3.0-13.0); PLATELET COUNT (AUTO) 233 K/uL (130-400); RED CELL DISTRIBUTION WIDTH 14.9 % (11.0-15.5); WHITE BLOOD COUNT (AUTO) 12.6 K/uL (4.8-10.8)
[2020-12-31 03:40] LABS: CREATININE 0.8 mg/dL (0.5-1.5); POTASSIUM 4.1 mmol/L (3.5-5.1)
[2020-12-31 03:44] LABS: ALBUMIN 3.3 g/dL (3.5-5.0); BILIRUBIN,TOTAL 0.3 mg/dL (0.2-1.0); CRP QUANTITATIVE 27.8 mg/L (0.00-9.0); TOTAL PROTEIN, SERUM 7.5 g/dL (6.0-8.3)
[2020-12-31 03:52] LABS: B-TYPE NATRIURETIC PEPTIDE 12 pg/mL (0-100)
[2020-12-31] MEDS ORDERED: CEFTRIAXONE SODIUM 1 GM ONE (04:25)
[2020-12-31] MEDS ORDERED: DOXYCYCLINE 100MG+NS 250ML 250 ML IV ONE ×2 (04:25→20:09)
[2020-12-31] MEDS ORDERED: SODIUM CHLORIDE 0.9% 100 ML IV ONE (04:26)
[2020-12-31] MEDS ORDERED: KETOROLAC TROMETHAMINE 30MG/ML ONE (04:26)
[2020-12-31] MEDS ORDERED: IOHEXOL 350 MG/ML 100ML INFUS..BTL IV ONE (04:56)
[2020-12-31 04:59] LABS: PROTHROMBIN TIME 10.9 SEC (9.6-11.6)
[2020-12-31 05:01] LABS: PARTIAL THROMBOPLASTIN TIME 25.3 SEC (26.3-35.5)
[2020-12-31 05:51] LABS: APPEARANCE,URINE Clear (CLEAR); BILIRUBIN,URINE Negative (NEGATIVE); COLOR,URINE Yellow (YELLOW); GLUCOSE, URINE (UA) Negative (NEGATIVE); KETONES,URINE Negative (NEGATIVE); LEUKOCYTE ESTERASE ,URINE Trace (NEGATIVE); NITRATE,URINE Negative (NEGATIVE); OCCULT BLOOD,URINE Negative (NEGATIVE); PROTEIN,URINE Negative (NEGATIVE); UROBILINOGEN,URINE 0.2 mg/dL (0.2-1.0)
[2020-12-31 06:04] LABS: BACTERIA,URINE None Seen /HPF (None Seen); RBC,URINE None Seen /HPF (0-1); SQUAMOUS EPITHELIAL CELL,UR Few /HPF (0-2); WBC,URINE None Seen /HPF (0-1)
[2020-12-31] MEDS: METHYLPREDNISOLONE SOD SUCC 40MG/ML 1ML IVP SCH ×2 (07:14→19:21)
[2020-12-31] MEDS ORDERED: SODIUM CHLORIDE 0.9% 10 ML VIAL IVP PRN (07:15)
[2020-12-31] MEDS ORDERED: IPRATROPIUM/ALBUTEROL SULFATE 3 ML SOLUTION IH PRN (07:15)
[2020-12-31] MEDS ORDERED: ENOXAPARIN SODIUM 40 MG/0.4 ML SYRINGE SQ ONE (07:49)
[2020-12-31] MEDS ORDERED: METHYLPREDNISOLONE SOD SUCC 40MG/ML 1ML ONE (07:49)
[2020-12-31] MEDS ORDERED: ENOXAPARIN SODIUM 40 MG/0.4 ML SYRINGE SQ SCH (09:00)
[2020-12-31] MEDS: IPRATROPIUM/ALBUTEROL SULFATE 3 ML SOLUTION IH SCH ×3 (10:00→18:00)
[2020-12-31] MEDS ORDERED: IPRATROPIUM/ALBUTEROL SULFATE 3 ML SOLUTION IH ONE (13:23)
[2020-12-31 16:10] VITALS: BP 165/102
[2020-12-31] MEDS ORDERED: AMOX1TAB15 PO (18:28)
[2020-12-31] MEDS ORDERED: CHOL100046 PO (18:28)
[2020-12-31] MEDS ORDERED: BUDE1AMP2 IH (18:28)
[2020-12-31] MEDS ORDERED: FOLI-103 PO (18:28)
[2020-12-31] MEDS ORDERED: TRAM50TA4 PO (18:28)
[2020-12-31] MEDS ORDERED: ASCO100031 PO (18:28)
[2020-12-31] MEDS ORDERED: ALBU2.5V2 IH (18:28)
[2020-12-31] MEDS ORDERED: ZINC30TA2 PO (18:28)
[2020-12-31] MEDS ORDERED: TRAMADOL HCL 50 MG TABLET PO PRN (18:30)
[2020-12-31 19:40] VITALS: BP 144/49
[2020-12-31] MEDS ORDERED: ASPIRIN 325 MG TABLET PO SCH (21:00)
[2020-12-31] MEDS ORDERED: DOXYCYCLINE 100MG+NS 250ML 250 ML IV SCH (21:00)
[2020-12-31] MEDS ORDERED: BUDESONIDE 0.5 MG/2 ML INH IH SCH (21:00)
[2020-12-31] MEDS ORDERED: CALCITRIOL 0.25 MCG CAPSULE PO SCH (21:00)
[2020-12-31] MEDS ORDERED: ASCORBIC ACID 500 MG TAB PO SCH (21:00)
[2020-12-31 23:18] VITALS: BP 142/75
[2020-12-31] MEDS: ALBUTEROL INHALER 90MCG/INH IH SCH (23:30)
[2021-01-01] MEDS ORDERED: ALBUTEROL SULFATE 0.083% 2.5 MG/3 ML INH IH SCH
[2021-01-01 03:40] VITALS: BP 152/81
[2021-01-01 05:53] LABS: MEAN CORPUSCULAR HEMOGLOBIN 24.7 pg (27.0-33.0); MEAN CORPUSCULAR HGB CONC 31.3 g/dL (32.0-36.0); MEAN CORPUSCULAR VOLUME 78.8 fL (79-99); PLATELET COUNT (AUTO) 245 K/uL (130-400); RED BLOOD CELL COUNT(AUTO) 4.82 MIL/uL (4.00-5.50); RED CELL DISTRIBUTION WIDTH 14.7 % (11.0-15.5); WHITE BLOOD COUNT (AUTO) 15.6 K/uL (4.8-10.8)
[2021-01-01] MEDS: IPRATROPIUM/ALBUTEROL SULFATE 3 ML SOLUTION IH SCH (06:00)
[2021-01-01 06:01] LABS: BASOPHILS % (AUTO) 0.3 % (0.0-5.0); EOSINOPHILS % (AUTO) 0.1 % (0.0-8.0); LYMPHOCYTES % (AUTO) 8.8 % (21.0-51.0); MONOCYTES % (AUTO) 2.1 % (3.0-13.0); NEUTROPHILS % (AUTO) 87.3 % (40.0-77.0)
[2021-01-01 06:05] LABS: BILIRUBIN,TOTAL 0.3 mg/dL (0.2-1.0); CREATININE 0.6 mg/dL (0.5-1.5); POTASSIUM 4.4 mmol/L (3.5-5.1); TOTAL PROTEIN, SERUM 7.3 g/dL (6.0-8.3)
[2021-01-01] MEDS: METHYLPREDNISOLONE SOD SUCC 40MG/ML 1ML IVP SCH (06:19)
[2021-01-01] MEDS: ALBUTEROL INHALER 90MCG/INH IH SCH (06:20)
[2021-01-01] MEDS ORDERED: CEFD300C3 PO (06:36)
[2021-01-01 07:57] VITALS: BP 132/59
[2021-01-01] MEDS ORDERED: CEFTRIAXONE SODIUM 1 GM IVP SCH (08:00)
[2021-01-01] MEDS ORDERED: MULTIVITAMIN WITH MINERALS TABLET PO SCH (09:00)
[2021-01-01] MEDS ORDERED: CALCITRIOL 0.25 MCG CAPSULE PO SCH (09:00)
== END 2021-01-01 10:20 | disposition home or self-care (01) ==
LOC: EDH 03:03 → EDHIP 06:47 → 3CH 15:05
PROVIDERS: ADMIT Internal Medicine; ATTEND Internal Medicine
DX: J18.9 Pneumonia, unspecified organism (principal); Z20.822 Contact with and (suspected) exposure to COVID-19; J84.10 Pulmonary fibrosis, unspecified; G47.30 Sleep apnea, unspecified; I10 Essential (primary) hypertension; E66.01 Morbid (severe) obesity due to excess calories; F41.9 Anxiety disorder, unspecified; Z86.16 Personal history of COVID-19; Z95.1 Presence of aortocoronary bypass graft; Z90.710 Acquired absence of both cervix and uterus; Z96.653 Presence of artificial knee joint, bilateral; Z79.899 Other long term (current) drug therapy; Z68.44 Body mass index [BMI] 60.0-69.9, adult
CPT/HCPCS: 36415 ×2; 71045; 71275; 76705; 80053 ×2; 81001; 82550; 82728; 83605; 83880; 84145; 84484; 85025 ×2; 85378; 85610; 85730; 86140; 87040; 87426; 93005; 94640 ×2; 96365; 96366; 96375; 96376; 99291; G0378 ×26; J0696; J1650; J1885; J2920 ×3; J3490 ×3; Q9967; U0003

== ENCOUNTER → 2021-03-07 | Outpatient (CLI) | payer OTHER ==
[~2021-03-07] MED LIST changes: +ALBU2.5V2 IH; +ALBUTEROL SULFATE 0.083% 2.5 MG/3 ML INH IH ONE; +AMOX1TAB15 PO; -APIX2.5T PO; +ASCO100031 PO; +BUDE1AMP2 IH; +CHOL100046 PO; -DEXA4 PO; +FOLI-103 PO; -HYDR-2132 PO; -NYST5ORA7 PO; +TRAM50TA4 PO; +ZINC30TA2 PO
== END | disposition home or self-care (01) ==
LOC: RESP 10:29
PROVIDERS: ATTEND Internal Medicine
DX: R06.02 Shortness of breath (principal); Z86.16 Personal history of COVID-19
CPT/HCPCS: 94060; 94727; 94729

== ENCOUNTER → 2021-03-16 | Outpatient (CLI) | payer OTHER ==
[~2021-03-16] MED LIST changes: -ALBUTEROL SULFATE 0.083% 2.5 MG/3 ML INH IH ONE
[2021-03-16 16:29] LABS: APPEARANCE,URINE Clear (CLEAR); BILIRUBIN,URINE Negative (NEGATIVE); COLOR,URINE Dark Yellow (YELLOW); GLUCOSE, URINE (UA) Negative (NEGATIVE); KETONES,URINE Negative (NEGATIVE); LEUKOCYTE ESTERASE ,URINE Moderate (NEGATIVE); NITRATE,URINE Positive (NEGATIVE); OCCULT BLOOD,URINE Negative (NEGATIVE); PH,URINE 6.5 (5.0-8.0); PROTEIN,URINE Negative (NEGATIVE)
[2021-03-16 16:39] LABS: RBC,URINE 0-1 /HPF (0-1)
[2021-03-16 16:40] LABS: BACTERIA,URINE Few /HPF (None Seen); MUCUS,URINE Rare LPF (None Seen); SQUAMOUS EPITHELIAL CELL,UR Moderate /HPF (0-2)
== END | disposition home or self-care (01) ==
LOC: LAB 15:20
PROVIDERS: ATTEND Internal Medicine
DX: H65.90 Unspecified nonsuppurative otitis media, unspecified ear (principal); K08.89 Other specified disorders of teeth and supporting structures; N39.0 Urinary tract infection, site not specified
CPT/HCPCS: 81001; 87088

== ENCOUNTER → 2021-05-02 | Outpatient (CLI) | payer OTHER | END | disposition home or self-care (01) | LOC: RAH 14:45 | PROVIDERS: ATTEND Internal Medicine | DX: M79.89 Other specified soft tissue disorders (principal); M79.604 Pain in right leg; R60.0 Localized edema; N64.9 Disorder of breast, unspecified | CPT/HCPCS: 93971 ==

== ENCOUNTER → 2021-05-09 | Outpatient (CLI) | payer OTHER ==
[2021-05-09 08:25] LABS: BASOPHILS % (AUTO) 0.3 % (0.0-5.0); EOSINOPHILS % (AUTO) 1.2 % (0.0-8.0); HEMATOCRIT 39.8 % (36-48); LYMPHOCYTES % (AUTO) 21.4 % (21.0-51.0); MEAN CORPUSCULAR HEMOGLOBIN 25.1 pg (27.0-33.0); MEAN CORPUSCULAR HGB CONC 31.2 g/dL (32.0-36.0); MEAN CORPUSCULAR VOLUME 80.6 fL (79-99); MONOCYTES % (AUTO) 5.8 % (3.0-13.0); NEUTROPHILS % (AUTO) 69.9 % (40.0-77.0); PLATELET COUNT (AUTO) 187 K/uL (130-400); RED BLOOD CELL COUNT(AUTO) 4.94 MIL/uL (4.00-5.50); RED CELL DISTRIBUTION WIDTH 15.1 % (11.0-15.5); WHITE BLOOD COUNT (AUTO) 12.5 K/uL (4.8-10.8)
[2021-05-09 08:49] LABS: B-TYPE NATRIURETIC PEPTIDE 6 pg/mL (0-100)
== END | disposition home or self-care (01) ==
LOC: LAB 08:01
PROVIDERS: ATTEND Internal Medicine
DX: R63.5 Abnormal weight gain (principal); N64.9 Disorder of breast, unspecified; Z99.81 Dependence on supplemental oxygen
CPT/HCPCS: 36415; 83880; 84146; 84443; 85025

== ENCOUNTER → 2021-05-24 | Outpatient (CLI) | payer OTHER ==
[2021-05-24 09:26] LABS: BASOPHILS % (AUTO) 0.4 % (0.0-5.0); EOSINOPHILS % (AUTO) 1.7 % (0.0-8.0); HEMATOCRIT 39.5 % (36-48); MEAN CORPUSCULAR HGB CONC 31.1 g/dL (32.0-36.0); MEAN CORPUSCULAR VOLUME 80.3 fL (79-99); MONOCYTES % (AUTO) 6.4 % (3.0-13.0); NEUTROPHILS % (AUTO) 72.2 % (40.0-77.0); PLATELET COUNT (AUTO) 193 K/uL (130-400); RED BLOOD CELL COUNT(AUTO) 4.92 MIL/uL (4.00-5.50); RED CELL DISTRIBUTION WIDTH 15.5 % (11.0-15.5); WHITE BLOOD COUNT (AUTO) 10.5 K/uL (4.8-10.8)
[2021-05-24 09:51] LABS: ALBUMIN 3.2 g/dL (3.5-5.0); BILIRUBIN,DIRECT 0.1 mg/dL (0.0-0.3); BILIRUBIN,TOTAL 0.3 mg/dL (0.2-1.0); CREATININE 0.6 mg/dL (0.5-1.5); POTASSIUM 3.7 mmol/L (3.5-5.1); THYROID STIMULATING HORMONE 1.56 uIU/mL (0.36-3.74); TOTAL PROTEIN, SERUM 7.2 g/dL (6.0-8.3); URIC ACID 5.1 mg/dL (2.6-7.2)
[2021-05-24 09:54] LABS: HEMOGLOBIN A1C 7.6 % (4.0-6.0)
[2021-05-24 10:34] LABS: ERYTHROCYTE SEDIMENTATION RATE 30 MM/HR (0-20)
== END | disposition home or self-care (01) ==
LOC: LAB 08:20
PROVIDERS: ATTEND Internal Medicine
DX: J96.10 Chronic respiratory failure, unspecified whether with hypoxia or hypercapnia (principal); J44.9 Chronic obstructive pulmonary disease, unspecified
CPT/HCPCS: 36415; 80053; 80061; 80076; 82043; 82306; 82607; 83036; 84443; 84550; 85025; 85651

== ENCOUNTER → 2021-05-25 | Outpatient (CLI) | payer OTHER | END | disposition home or self-care (01) | LOC: RAH 12:57 | PROVIDERS: ATTEND Internal Medicine | DX: R92.2 Inconclusive mammogram (principal); N63.11 Unspecified lump in the right breast, upper outer quadrant | CPT/HCPCS: 77066 ==

== ENCOUNTER → 2021-05-30 | Outpatient (CLI) | payer OTHER ==
[~2021-05-30] MED LIST changes: +GADOTERATE MEGLUMINE 10 MMOL/20 ML VIAL IV ONE
== END | disposition home or self-care (01) ==
LOC: RAH 07:57
PROVIDERS: ATTEND Internal Medicine
DX: N60.01 Solitary cyst of right breast (principal); N63.10 Unspecified lump in the right breast, unspecified quadrant
CPT/HCPCS: 77049; A9575

== ENCOUNTER → 2021-06-05 | Outpatient (CLI) | payer OTHER ==
[~2021-06-05] MED LIST changes: -GADOTERATE MEGLUMINE 10 MMOL/20 ML VIAL IV ONE
[2021-06-05 09:00] LABS: PROTHROMBIN TIME 10.9 SEC (9.6-11.6)
== END | disposition home or self-care (01) ==
LOC: RAH 08:02
PROVIDERS: ATTEND Internal Medicine
DX: N63.15 Unspecified lump in the right breast, overlapping quadrants (principal); Z79.01 Long term (current) use of anticoagulants
CPT/HCPCS: 19083; 36415; 85610; 85730; A4215 ×3

== ENCOUNTER → 2021-08-20 | Outpatient (CLI) | payer OTHER ==
[~2021-08-20] MED LIST changes: +GADOTERATE MEGLUMINE 10 MMOL/20 ML VIAL IV ONE
== END | disposition home or self-care (01) ==
LOC: RAH 13:33
PROVIDERS: ATTEND Psychiatry & Neurology Neurology
DX: R41.3 Other amnesia (principal)
CPT/HCPCS: 70553; A9575

== ENCOUNTER → 2021-08-22 | Outpatient (CLI) | payer OTHER ==
[~2021-08-22] MED LIST changes: -GADOTERATE MEGLUMINE 10 MMOL/20 ML VIAL IV ONE
[2021-08-22 09:45] LABS: BASOPHILS % (AUTO) 0.5 % (0.0-5.0); EOSINOPHILS % (AUTO) 1.4 % (0.0-8.0); HEMATOCRIT 38.9 % (36-48); LYMPHOCYTES % (AUTO) 18.8 % (21.0-51.0); MEAN CORPUSCULAR HEMOGLOBIN 25.3 pg (27.0-33.0); MEAN CORPUSCULAR HGB CONC 30.8 g/dL (32.0-36.0); MEAN CORPUSCULAR VOLUME 81.9 fL (79-99); MONOCYTES % (AUTO) 6.5 % (3.0-13.0); NEUTROPHILS % (AUTO) 71.3 % (40.0-77.0); PLATELET COUNT (AUTO) 161 K/uL (130-400); RED BLOOD CELL COUNT(AUTO) 4.75 MIL/uL (4.00-5.50); RED CELL DISTRIBUTION WIDTH 15.9 % (11.0-15.5); WHITE BLOOD COUNT (AUTO) 9.8 K/uL (4.8-10.8)
[2021-08-22 10:13] LABS: HEMOGLOBIN A1C 8.6 % (4.0-6.0)
[2021-08-22 10:51] LABS: ALBUMIN 3.1 g/dL (3.5-5.0); BILIRUBIN,DIRECT 0.1 mg/dL (0.0-0.3); BILIRUBIN,TOTAL 0.4 mg/dL (0.2-1.0); CREATININE 0.5 mg/dL (0.5-1.5); POTASSIUM 3.8 mmol/L (3.5-5.1); THYROID STIMULATING HORMONE 1.64 uIU/mL (0.36-3.74); TOTAL PROTEIN, SERUM 7.2 g/dL (6.0-8.3)
== END | disposition home or self-care (01) ==
LOC: RAH 08:47
PROVIDERS: ATTEND Internal Medicine
DX: J96.11 Chronic respiratory failure with hypoxia (principal); J84.10 Pulmonary fibrosis, unspecified; R74.8 Abnormal levels of other serum enzymes
CPT/HCPCS: 36415; 76705; 80053; 80061; 80076; 82043; 82306; 82607; 82977; 83036; 84146; 84443; 85025; 86140

== ENCOUNTER 2022-09-16 08:44 | Emergency (ER) | payer OTHER ==
[~2022-09-16] VITALS: Ht 157.5 cm; Wt 152.9 kg
[2022-09-16 09:12] LABS: BASOPHILS % (AUTO) 0.4 % (0.0-5.0); EOSINOPHILS % (AUTO) 1.3 % (0.0-8.0); HEMATOCRIT 38.6 % (36-48); LYMPHOCYTES % (AUTO) 18.2 % (21.0-51.0); MEAN CORPUSCULAR HEMOGLOBIN 25.3 pg (27.0-33.0); MEAN CORPUSCULAR HGB CONC 31.6 g/dL (32.0-36.0); MEAN CORPUSCULAR VOLUME 79.9 fL (79-99); MONOCYTES % (AUTO) 5.1 % (3.0-13.0); NEUTROPHILS % (AUTO) 74.1 % (40.0-77.0); PLATELET COUNT (AUTO) 134 K/uL (130-400); RED BLOOD CELL COUNT(AUTO) 4.83 MIL/uL (4.00-5.50); RED CELL DISTRIBUTION WIDTH 15.3 % (11.0-15.5); WHITE BLOOD COUNT (AUTO) 11.5 K/uL (4.8-10.8)
[2022-09-16 09:21] LABS: CREATININE 0.6 mg/dL (0.5-1.5); POTASSIUM 4.4 mmol/L (3.5-5.1)
[2022-09-16 09:26] LABS: ALBUMIN 3.2 g/dL (3.5-5.0); TOTAL PROTEIN, SERUM 7.4 g/dL (6.0-8.3)
[2022-09-16 09:37] LABS: B-TYPE NATRIURETIC PEPTIDE 91 pg/mL (0-100)
[2022-09-16 10:50] VITALS: BP 125/42
== END 2022-09-16 10:51 | disposition home or self-care (01) ==
LOC: EDH 08:44
DX: R06.00 Dyspnea, unspecified (principal); J44.9 Chronic obstructive pulmonary disease, unspecified; E66.01 Morbid (severe) obesity due to excess calories; Z90.49 Acquired absence of other specified parts of digestive tract; Z79.82 Long term (current) use of aspirin; Z68.44 Body mass index [BMI] 60.0-69.9, adult
CPT/HCPCS: 36415; 71045; 80053; 83880; 84484; 84703; 85025; 85378; 93005

== ENCOUNTER → 2023-06-24 | Outpatient (CLI) | payer OTHER | END | disposition home or self-care (01) | LOC: RAH 15:16 | PROVIDERS: ATTEND Internal Medicine | DX: Z12.31 Encounter for screening mammogram for malignant neoplasm of breast (principal) | CPT/HCPCS: 77067 ==

== ENCOUNTER 2024-02-05 14:24 | Emergency (ER) | payer OTHER ==
[~2024-02-05] VITALS: Ht 157.5 cm; Wt 148.8 kg
[2024-02-05] MEDS: IBUPROFEN 600 MG TABLET PO ONE (15:39)
[2024-02-05 16:20] VITALS: BP 134/59; PULSE 82; RESP 18; O2SAT 96
[2024-02-05] MEDS: CYCLOBENZAPRINE HCL 10 MG TABLET PO ONE (16:28)
[2024-02-05] MEDS: PREDNISONE 20 MG TABLET PO ONE (16:28)
[2024-02-05] MEDS ORDERED: METH-811 PO (16:33)
== END 2024-02-05 16:51 | disposition home or self-care (01) ==
LOC: EDH 14:24
DX: S16.1XXA Strain of muscle, fascia and tendon at neck level, initial encounter (principal); S39.012A Strain of muscle, fascia and tendon of lower back, initial encounter; J44.9 Chronic obstructive pulmonary disease, unspecified; J45.909 Unspecified asthma, uncomplicated; Z79.82 Long term (current) use of aspirin; Z90.49 Acquired absence of other specified parts of digestive tract; Z90.710 Acquired absence of both cervix and uterus; V89.2XXA Person injured in unspecified motor-vehicle accident, traffic, initial encounter; Y93.89 Activity, other specified; Y92.89 Other specified places as the place of occurrence of the external cause; Y99.8 Other external cause status
CPT/HCPCS: 70450; 72125

== ENCOUNTER 2025-06-12 12:09 | Emergency (ER) | payer OTHER ==
[~2025-06-12] VITALS: Ht 154.9 cm; Wt 142.9 kg
[~2025-06-12 12:09] MED LIST changes: -AMOX1TAB15 PO; -ASCO100031 PO; -ASPI-1012 PO; +BACL10TA PO; +BISA-151 PO; +CARI1.5C PO; -CHOL100046 PO; +EMPA25TA PO; +ESCI20TA38 PO; +FLUT1BLS15 IH; -FOLI-103 PO; +FURO20TA4 PO; +GLIM4TAB36 PO; +HYDR-3830 PO; +LISI10TA24 PO; +METO-409 PO; +MONT-39 PO; +ROSU10TA72 PO; +SERT-440 PO; -TRAM50TA4 PO; +VITAD50000 PO; -ZINC30TA2 PO
[2025-06-12] MEDS: ORPHENADRINE 60MG/2ML IM SCH (14:15)
[2025-06-12 14:19] LABS: IMMATURE GRANULOCYTE ABSOLUTE 0.08 K/uL (0-1); NUCLEATED RED BLOOD CELLS 0.0 % (0.0-0.19); PLATELET COUNT (AUTO) 191 K/uL (130-400); RED BLOOD CELL COUNT(AUTO) 5.33 MIL/uL (4.00-5.50); RED CELL DISTRIBUTION WIDTH 16.3 % (11.0-15.5); WHITE BLOOD COUNT (AUTO) 13.8 K/uL (4.8-10.8)
[2025-06-12 14:26] LABS: CREATININE 0.6 mg/dL (0.5-1.0); GLOMERULAR FILTR. RATE CALC 109.0 mL/min (>90); GLUCOSE,RANDOM 86.0 mg/dL (70-105); SODIUM SERUM 137.0 mmol/L (136-145); UREA NITROGEN, BLOOD 16.0 mg/dL (7-18)
--- NOTE | 2025-06-12 14:32 | HMCIMG ---
EXAM: CR Chest, 1 View. CLINICAL HISTORY: right sided chest pain COMPARISON: X-ray chest 04/30/2024 FINDINGS: LUNGS: The lungs show no infiltrate or other acute finding. PLEURAL SPACES: No evidence of pleural effusion or pneumothorax. MEDIASTINUM: Cardiac size and mediastinal contours within normal limits. BONES: No aggressive appearing osseous lesion seen. IMPRESSION: No acute cardiopulmonary pathology is evident. /[place]
--- NOTE | 2025-06-12 14:37 | EKG ---
[facility] Test Date: 2025-06-12 Test Time: 14:33:36 Pat Name: NOLAN MICHAEL Department: ED Room: Gender: F Candy Spreader: [id number] : 1975 Requested By: ANTIONE MARCIAL Order Number: [id number] Reading MD: Levi Murphy Measurements Intervals [place] Rate: 71 P: 36 OK: 151 QRS: 18 QRSD: 98 T: -2 QT: 419 QTc: 455 Interpretive Statements Sinus rhythm Abnormal T, consider ischemia, diffuse leads Compared to ECG 05/08/2025 20:29:24 T-wave abnormality now present Possible ischemia now present Electronically Signed On 06-12-2025 16:05:28 CDT by Levi Murphy Please click the below link to view image of tracing.
[2025-06-12] MEDS ORDERED: KETO10TA2 PO (15:05)
--- NOTE | 2025-06-12 15:06 | ERN ---
General Chief Complaint: Shoulder Injury/Pain Stated Complaint: SHOULDER PAIN Time Seen by MD: 13:25 Time Seen by Midlevel: 13:25 Source: patient History of Present Illness Initial Comments The patient is a 49-year-old female with a past medical history of COPD presenting to the emergency department for evaluation of right-sided chest pain that radiates to her right shoulder. This has been ongoing since yesterday. There is increased pain with coughing and movements. Denies any fever, chills, or any other symptoms at this time. Allergies: Coded Allergies: No Known Drug Allergies (Verified Allergy, Unknown, 01/17/15) latex (Unverified Allergy, Unknown, RASH, 01/17/15) Home Meds Reported Medications Cariprazine Hydrochloride (Vraylar) 1.5 Mg Capsule, 1 CAP PO DAILY for 30 Days, #30 CAP 0 Refills 05/09/25 Bisacodyl (Bisacodyl) 5 Mg Tablet.dr, 5 MG PO AD, TAB 05/09/25 Rosuvastatin Calcium (Rosuvastatin Calcium) 10 Mg Tablet, 1 TAB PO HS for 30 Days, #30 TAB 0 Refills 05/09/25 Empagliflozin (Jardiance) 25 Mg Tablet, 1 TAB PO DAILY for 30 Days, #30 TAB 0 Refills 05/09/25 Cholecalciferol (Vitamin D3) 1,250 Mcg (69113 Unit) Cap, 1 CAP PO QWEEK for 28 Days, #4 CAP 0 Refills 05/09/25 Metoprolol Succinate (Metoprolol Succinate) 100 Mg Tab.er.24h, 1 TAB PO DAILY for 30 Days, #30 TAB 0 Refills 05/09/25 Sertraline HCl (Sertraline HCl) 100 Mg Tablet, 1 TAB PO DAILY for 30 Days, #30 TAB 0 Refills 05/09/25 Glimepiride (Glimepiride) 4 Mg Tablet, 1 TAB PO DAILY for 30 Days, #30 TAB 0 Refills 05/09/25 Empagliflozin (Jardiance) 25 Mg Tablet, 25 MG PO DAILY, TAB 05/09/25 Escitalopram Oxalate (Escitalopram Oxalate) 20 Mg Tablet, 20 MG PO DAILY, TAB 05/09/25 Baclofen (Baclofen) 10 Mg Tablet, 10 MG PO TID, TAB 05/09/25 Escitalopram Oxalate (Escitalopram Oxalate) 20 Mg Tablet, 1 TAB PO DAILY for 30 Days, #30 TAB 0 Refills 05/09/25 Montelukast Sodium (Montelukast Sodium) 10 Mg Tablet, 10 MG PO DAILYBKFST, TAB 05/09/25 Lisinopril (Lisinopril) 10 Mg Tablet, 1 TAB PO DAILY for 30 Days, #30 TAB 0 Refills 05/09/25 Hydroxyzine HCl (Hydroxyzine HCl) 10 Mg Tablet, 1 TAB PO TID for anxiety for 30 Days, #90 TAB 0 Refills 05/09/25 Furosemide (Furosemide) 20 Mg Tablet, 1 TAB PO DAILY for 30 Days, #30 TAB 0 Refills 05/09/25 Fluticasone/Umeclidin/Vilanter (Trelegy Ellipta 200-62.5-25) 200-62.5 Blst.w.dev, 1 PUFF IH DAILY for 30 Days, #60 EACH 0 Refills 05/09/25 Albuterol Sulfate (Albuterol Sulfate) 2.5 Mg/3 Ml Vial.neb, 2.5 MG IH [id number], INH 12/31/20 Budesonide (Budesonide) 1 Mg/2 Ml Ampul.neb, 1 MG IH BID 12/31/20 Past Medical History Past Medical History: COPD, Diabetes-Type II, Diverticulitis, Diverticulosis, High Cholesterol, Hypertension, Other Medical History Other: PULM. HYPERTENSION Past Surgical History: Other Surgical History Other: RT KNEE SX, ABD HERNIA REPAIR, COLON RESECTION Family History Family History: Negative Social History Social History: Negative, Lives with family Female( History) History: Not Applicable ROS Dictation CONSTITUTIONAL: Negative except for HPI HEAD/FACE: Negative except for HPI EENT: Negative except for HPI RESPIRATORY: Negative except for HPI GASTROINTESTINAL/ABDOMINAL: Negative except for HPI GENITOURINARY: Negative except for HPI MUSCULOSKELETAL: Negative except for HPI INTEGUMENTARY: Negative except for HPI NEUROLOGICAL/PSYCH: Negative except for HPI HEMATOLOGIC/LYMPHATIC: Negative except for HPI All Systems Negative, Except as noted above. 13 point review of systems assessed and all negative except for above. Physical Exam Physical Exam Dictation Vital Signs reviewed General Appearance: Alert, oriented x 3, no acute distress, well developed, nourished. Head and Face: non-traumatic. Eyes: PERRL, pink conjunctivas, eyelid no trauma, anterior chamber with arcus senilis. Ears: Pinnas intact and no signs of trauma or erythema ear canals clear and no discharge TM no erythema Nose: No discharge, no bleeding. Oropharynx: Mouth normal, tongue pink, pharynx clear,no erythema, tonsils no exudates, no abscesses noted, mucous membrane moist Neck: Supple, non-tender, no thyromegaly, no masses, no JVD, no bruits Breast:Deferred Chest:No tenderness, no crepitus, no paradoxical movement, no retractions Lungs:Clear, well-ventilated, symmetric, no rales, no wheezing, no rhonchi, no stridor, good breath sounds bilaterally Heart: Regular rate, regular rhythm, no murmur, no gallops Vascular: no peripheral edema, Abdomen: Soft, positive bowel sounds, nondistended, no guarding, nontender, no rebound, no masses no hepatomegaly, no splenomegaly, no Pratt's sign, no hernias. Rectal: Deferred Genital: Deferred Neurological: Normal speech, motor function intact, sensory function intact Musculoskeletal: Neck nontender, full range of motion, back nontender, full range of motion, Extremities: nontender, full range of motion Skin: Color pink, dry, no turgor, no rash, no lacerations, no abrasions, no contusions. Lymphatic: Deferred Results Laboratory and Microbiology Lab and Micro Result Laboratory Tests Test 06/12/25 14:12 White Blood Count 13.8 K/uL (4.8-10.8) H Red Blood Count 5.33 MIL/uL (4.00-5.50) Hemoglobin 12.9 g/dL (12.0-16.0) Hematocrit 41.2 % (36-48) Mean Corpuscular Volume 77.3 fL (79-99) L Mean Corpuscular Hemoglobin 24.2 pg (27.0-33.0) L Mean Corpuscular Hemoglobin Concent 31.3 g/dL (32.0-36.0) L Red Cell Distribution Width 16.3 % (11.0-15.5) H Platelet Count 191 K/uL (130-400) Mean Platelet Volume 11.6 fL (7.5-10.5) H Immature Granulocyte % (Auto) 0.6 % (0-1) Neutrophils (%) (Auto) 70.7 % (40.0-77.0) Lymphocytes (%) (Auto) 18.8 % (21.0-51.0) L Monocytes (%) (Auto) 7.9 % (3.0-13.0) Eosinophils (%) (Auto) 1.7 % (0.0-8.0) Basophils (%) (Auto) 0.3 % (0.0-5.0) Neutrophils # (Auto) 9.7 K/uL (1.8-7.7) H Lymphocytes # (Auto) 2.6 K/uL (1.0-4.8) Monocytes # (Auto) 1.1 K/uL (0.1-1.0) H Eosinophils # (Auto) 0.23 K/uL (0.00-0.70) Basophils # (Auto) 0.04 K/uL (0.00-0.20) Absolute Immature Granulocyte (auto 0.08 K/uL (0-1) Nucleated Red Blood Cells 0.0 % (0.0-0.19) Red Blood Cell Morphology See comments Sodium Level 137 mmol/L (136-145) Potassium Level 3.9 mmol/L (3.5-5.1) Chloride Level 102 mmol/L (101-111) Carbon Dioxide Level 30 mmol/L (21-32) Blood Urea Nitrogen 16 mg/dL (7-18) Creatinine 0.6 mg/dL (0.5-1.0) Glomerular Filtration Rate Calc 109 mL/min (>90) Random Glucose 86 mg/dL (70-105) Total Calcium 8.8 mg/dL (8.5-10.1) Troponin I High Sensitivity 6 ng/L (4-50) Labs Reviewed?: Yes MDM MDM: The patient is a 49-year-old female with a past medical history of COPD presenting to the emergency department for evaluation of right-sided chest pain that radiates to her right shoulder. This has been ongoing since yesterday. There is increased pain with coughing and movements. Denies any fever, chills, or any other symptoms at this time. On physical examination the patient has reproducible pain with movement of the right upper torso and right upper arm. No signs of external trauma. EKG shows no evidence of a STEMI. Cardiac enzymes are negative. Labs are stable. We will discharged home with a diagnosis of musculoskeletal pain Differential diagnosis: Still has a pain, costochondritis, pneumonia, acute co ronary syndrome There are no social concerns with this patient. Prescription drug management Prescriptions will include: Ketorolac Medical management and examination interpretation discussions were had by me with other qualified healthcare professionals as indicated for the patient's care. ED Course Orders Procedure Category Date Status Time Ketorolac PHA 06/12/25 Complete Tromethamine 30mg/Ml 14:30 Cbc With Differential LAB 06/12/25 Complete 14:06 Basic Metabolic Panel LAB 06/12/25 Complete 14:06 Troponin I High LAB 06/12/25 Complete Sensitivity 14:06 Chest 1vw RAD 06/12/25 Resulted 14:06 12 Lead Ekg Tracing- EKG 06/12/25 Complete Technical 14:06 Orphenadrine Citrate PHA 06/12/25 In Process (Norflex) 14:30 Current Medications Medications (Trade) Dose Ordered Sig/Jim Route PRN Reason Start Time Stop Time Status Last Admin Dose Admin Ketorolac Tromethamine (toRADol) 30 mg ONCE ONCE IM 06/12/25 14:30 06/12/25 14:31 DC 06/12/25 14:16 Orphenadrine Citrate (Norflex) 60 mg ONCE IM 06/12/25 14:30 06/12/25 18:30 06/12/25 14:15 Vital Signs Date Time Temp Pulse Resp B/P (MAP) Pulse Ox O2 Delivery O2 Flow Rate FiO2 06/12/25 12:36 98.1 68 15 126/54 98 Room Air* 0 21 06/12/25 12:12 97.3 68 18 125/51 96 Room Air 0 [place] [id number] [address] IMAGING REPORT Signed PATIENT: NOLAN MICHAEL MR#: [id number] : 1975 SEX: F AGE: 49 LOCATION: [facility] ORDER 06 STATUS: REG ER REPORT#: [id number] SERVICE 05 REASON: right sided chest pain ORDERING PHYSICIAN: ANTIONE MARCIAL PROCEDURE: CXR1VW - CHEST 1VW EXAM: CR Chest, 1 View. CLINICAL HISTORY: right sided chest pain COMPARISON: X-ray chest 04/30/2024 FINDINGS: LUNGS: The lungs show no infiltrate or other acute finding. PLEURAL SPACES: No evidence of pleural effusion or pneumothorax. MEDIASTINUM: Cardiac size and mediastinal contours within normal limits. BONES: No aggressive appearing osseous lesion seen. IMPRESSION: No acute cardiopulmonary pathology is evident. /[place] DICTATED BY: GWENDOLYN HENRY MD DATE: 06/12/251531 ELECTRONICALLY SIGNED BY: GWENDOLYN HENRY MD DATE: 06/12/251531 DX & DISP Disposition: Discharge Departure Impression: Primary Impression: Musculoskeletal pain Condition: Stable Scripts Ketorolac Tromethamine (Ketorolac Tromethamine) 10 Mg Tablet 1 TAB PO BID for pain for 5 Days, #10 TAB 0 Refills Prov: ANTIONE MARCIAL 06/12/25 Additional Instructions: Your blood work today is stable. Your cardiac enzymes are negative. Your EKG does not show any evidence of a heart attack. Your chest x-ray does not show any evidence of a collapsed lung or any other acute abnormalities. It appears your pain is musculoskeletal in nature. I have given you a prescription for ketorolac. Please follow up with your primary care doctor in 2-3 days for repeat evaluation. Referrals: HARISH PEÑALOZA MD (PCP) Time of Disposition: 15:04 I have reviewed the case, and I agree with, Diagnosis and Plan I performed the substantive portion of the visit. I have reviewed and personall y made and approve the management plan that is documented in the note by myself or the LILLY. I acknowledge for responsibility for the patient's management plan. ANTIONE MARCIAL Jun 12, 2025 15:06
[2025-06-12 15:17] VITALS: BP 128/54; PULSE 65; RESP 15; TEMP 98; O2SAT 98
== END 2025-06-12 15:24 | disposition home or self-care (01) ==
LOC: EDH 12:09
DX: M79.18 Myalgia, other site (principal); J44.9 Chronic obstructive pulmonary disease, unspecified; E11.9 Type 2 diabetes mellitus without complications; E78.00 Pure hypercholesterolemia, unspecified; I10 Essential (primary) hypertension; Z79.84 Long term (current) use of oral hypoglycemic drugs; Z79.899 Other long term (current) drug therapy; Z98.890 Other specified postprocedural states
CPT/HCPCS: 99285; 71045; 84484; 80048; 85025; 36415; 96372 ×2; 93005; J1885; J2360

== ENCOUNTER → 2025-06-14 | Outpatient (CLI) | payer OTHER ==
[~2025-06-14] MED LIST changes: +KETO10TA2 PO
--- NOTE | 2025-06-14 16:04 | HMCIMG ---
CLINICAL INFORMATION Shoulder pain COMPARISON None. TECHNIQUE Volumetric helical CT images of the extremity without contrast FINDINGS Bones: No acute fracture. No destructive osseous abnormality. Alignment: Normal. Joints: Mild acromioclavicular osteoarthritis. Unremarkable appearance of the glenohumeral joint. Effusion: None Soft Tissues: The rotator cuff is grossly intact, within the confines of CT. No tendon retraction or muscle atrophy. IMPRESSION No acute osseous abnormality. Mild acromioclavicular osteoarthritis. Rotator cuff is grossly intact. Subtle pathology better evaluated with MR, if indicated. /[place]
== END | disposition home or self-care (01) ==
LOC: RAH 13:49
PROVIDERS: ATTEND Internal Medicine
DX: M19.011 Primary osteoarthritis, right shoulder (principal); M25.411 Effusion, right shoulder; M24.811 Other specific joint derangements of right shoulder, not elsewhere classified; M25.511 Pain in right shoulder
CPT/HCPCS: 73200

== ENCOUNTER → 2025-10-04 | Outpatient (CLI) | payer OTHER ==
[~2025-10-04] MED LIST changes: -ROSU10TA72 PO; +ROSU10TA98 PO
--- NOTE | 2025-10-05 16:07 | HMCIMG ---
DIGITAL BILATERAL SCREENING MAMMOGRAM Technique: The digital mammographic examination of both breasts in craniocaudal and mediolateral oblique views along with CAD was obtained. History: This is a 50 years year-old female 0, para0 Ab0. Patient has no family history of breast cancer. Patient has no complaint Reference:Prior mammogram from 06/24/2023 is available.. Breast composition: Breast composition C: The breasts are heterogeneously dense, which may obscure small masses. Finding: The digital mammographic examination of both breasts in craniocaudal and mediolateral oblique view along with CAD demonstrates both breasts to BE mildly heterogeneously nodular dense breasts. In the left breast upper outer quadrant there is a bilobed possibly trilobed density measuring approximately 2 cm with solitary macrocalcification. This was not seen on the prior mammogram.. There is no evidence of any dendritic mass, cluster microcalcification or architectural distortion. The retromammary fat appears to be normal. IMPRESSION: Left breast upper outer quadrant is a lesion high lobe 2 cm in length. I would recommend coned-down compression view of the left breast along with bilateral breast sonogram for further evaluation. FINAL ASSESSMENT: ACR: BI-RAD -0. Incomplete: need additional imaging evaluation. NOTE: IF A WORK-UP OF THIS PATIENT LEADS TO A BIOPSY, PLEASE FORWARD A COPY OF THE PATHOLOGY REPORT TO OUR OFFICE REQUIRED BY [employer] AUGUST 03, 1994. A NEGATIVE MAMMOGRAM SHOULD NOT PRECLUDE BIOPSY OF A CLINICALLY PALPABLE SUSPICIOUS MASS, 10% OF BREAST CANCERS ARE MAMMOGRAPHICALLY OCCULT. THIS MAMMOGRAPHY FACILITY IS FULLY ACCREDITED BY THE FOOD AND DRUG ADMINISTRATION (FDA). THANK YOU FOR THIS REFERRAL.
== END | disposition home or self-care (01) ==
LOC: RAH 07:39
PROVIDERS: ATTEND Internal Medicine
DX: Z12.31 Encounter for screening mammogram for malignant neoplasm of breast (principal); R92.333 Mammographic heterogeneous density, bilateral breasts
CPT/HCPCS: 77067